=== PATIENT | female | born 1940 | race Caucasian/White ===

== ENCOUNTER 2018-03-08 16:00 | Outpatient (RCR) | payer MEDICARE, SELFPAY ==
[2018-03-01 16:58] VITALS: BP 152/84; PULSE 72; RESP 18; TEMP 37
--- NOTE | 2018-03-01 21:04 | PCM.WC.HP ---
(1) Stage IV pressure ulcer of sacral region Status: Chronic Current Visit: Yes Code(s): L89.154 - Pressure ulcer of sacral region, stage 4 (2) Controlled type 2 diabetes mellitus with insulin therapy Status: Chronic Current Visit: Yes Code(s): E11.9 - Type 2 diabetes mellitus without complications; Z79.4 - watermelon inspector (current) use of insulin (3) Vascular dementia with behavioral disturbance Status: Chronic Current Visit: Yes Code(s): F01.51 - Vascular dementia with behavioral disturbance (4) Osteoarthritis Status: Chronic Current Visit: Yes Qualifiers: Osteoarthritis location: multiple joints Code(s): M19.90 - Unspecified osteoarthritis, unspecified site (5) Morbid obesity Status: Chronic Current Visit: Yes Code(s): E66.01 - Morbid (severe) obesity due to excess calories (6) CAD (coronary artery disease) Status: Chronic Current Visit: Yes Qualifiers: Coronary Disease-Associated Artery/Lesion type: unspecified vessel or lesion type [place] vs. transplanted heart: [place] heart Associated angina: without angina Qualified Code(s): I25.10 - Atherosclerotic heart disease of [place] coronary artery without angina pectoris Code(s): I25.10 - Atherosclerotic heart disease of [place] coronary artery without angina pectoris (7) Hypothyroidism Status: Chronic Current Visit: Yes Qualifiers: Hypothyroidism type: unspecified Qualified Code(s): E03.9 - Hypothyroidism, unspecified Code(s): E03.9 - Hypothyroidism, unspecified History of Present Illness Date of Service: 03/01/18 Chief Complaint: nonhealing wound of sacral area History of Wound: Carly is a 77 yo resident of [facility] that presents with a pressure ulcer of her sacral/coccyx area that has been present for several months. She is a poor historian but is accompanied by her daughter who first noticed the wound. It has been being treated with Santyl and optifoam. Her daughter reports that the wound originally started out as a skin tear but progressed to a thick unstageable wound in the course of a week. The patient is mainly bed bound and has a low air loss mattress and a Roho cushion for her wheelchair. Her daughter, Nereyda, has been there and observed that her mother has not been repositioned for over 5 hours at times. She is a full code but would not want to be on life support per her daughter. The area is painful and there is a large amount of drainage. Carly has a urinary catheter but it leaks frequently. Past Medical History Past Medical History: Chronic Problems Stage IV pressure ulcer of sacral region (Chronic) Controlled type 2 diabetes mellitus with insulin therapy (Chronic) Vascular dementia with behavioral disturbance (Chronic) Osteoarthritis (Chronic) Morbid obesity (Chronic) CAD (coronary artery disease) (Chronic) Hypothyroidism (Chronic) Allergies/Adverse Reactions: Allergies No Known Allergies Allergy (Verified 03/01/18 16:27) Home Medications: Ambulatory Orders Medication Instructions Recorded Acetaminophen 650 mg RC Q4H PRN 03/01/18 Aspirin 81 mg PO DAILY 03/01/18 Bisacodyl [Dulcolax] 10 mg RECTAL DAILY PRN PRN 03/01/18 Cholecalciferol (VIT D3) [Vitamin 2,000 unit PO DAILY 03/01/18 D] Duloxetine Hcl [Cymbalta] 60 mg PO DAILY 03/01/18 Furosemide [Lasix] 20 mg PO BIDLX 03/01/18 Hydrocodone/Acetaminophen [[place] 1 each PO Q12H PRN 03/01/18 5-325 Tablet] Insulin Aspart [Novolog Flexpen 10 units SC BIDCM 03/01/18 ([facility])] Insulin Glargine,Hum.rec.anlog 20 unit SQ QHS 03/01/18 [Lantus Solostar] Isosorbide DN [Isordil] 10 mg PO TID 03/01/18 Levothyroxine Sodium 25 mcg PO DAILY 03/01/18 Lorazepam [Ativan] 0.5 mg PO DAILY PRN PRN 03/01/18 Mag Hydrox/Al Hydrox/Simeth 30 ml PO Q4H PRN PRN 03/01/18 [Mylanta II] Magnesium Hydroxide [Milk Of 30 ml PO PRN 03/01/18 Magnesia] Memantine HCl [Namenda Xr] 28 mg PO DAILY 03/01/18 Methenamine Hippurate [Hiprex] 1 gm PO DAILY 03/01/18 Metoprolol Tartrate [Lopressor 25 mg PO BID 03/01/18 (Beta Harvinder)] Omeprazole [Prilosec] 20 mg PO DAILY 03/01/18 Polyethylene Glycol 3350 [Miralax] 17 gm PO QHS 03/01/18 Potassium Chloride 10 meq PO DAILY 03/01/18 Sennosides [Senna] 8.6 mg PO BID 03/01/18 Tramadol HCl [Ultram] 100 mg PO Q8H PRN 03/01/18 Trazodone HCl 50 mg PO QHS 03/01/18 - Family History Maternal No pertinent history Paternal No pertinent history Lives: Assisted Smoking Status: Smoker, status unknown Tobacco Use: Non-smoker Alcohol: None Drugs: None Review of Systems Constitutional: Denies: Chills, Fever, Weight Change Eyes: Denies: Pain, Vision Change HEENT: Denies: Difficulty Hearing, Difficulty Swallowing, Sinus Congestion Cardiovascular: Denies: Chest Pain, Palpitations Respiratory: Denies: Cough, Shortness of Breath Gastrointestinal: Denies: Diarrhea, Nausea, Vomiting Genitourinary: Reports: Incontinence Musculoskeletal: Reports: Back Pain, Joint Pain Skin: Reports: Wounds Neurological: Reports: Confusion Hematologic/ Lymphatic: Denies: Easy Bruising, Easy Bleeding - Physical Exam Vital Signs Temp Pulse Resp BP 98.6 F 72 18 152/84 H 03/01/18 16:58 03/01/18 16:58 03/01/18 16:58 03/01/18 16:58 General: Alert, Cooperative, No apparent distress, Disoriented HEENT: Atraumatic, Normocephalic Oral: Moist Mucosa Neck: Supple Lungs: Clear to auscultation Cardiovascular: Regular rate, Regular Rhythm Abdomen: Non Tender, Non-Distended, Obese Extremities: Edema Skin: Ulcer/ Wound Wound Measurements and Assessment WC - Nurse 1 - General Ulcer Measurement Start: 03/01/18 16:25 Freq: Status: Active Protocol: Activity Type Activity Date Activity User E-Sign Co-Sign Detail Recorded Client Recorded Date Recorded By Document 03/01/18 16:58 DV [id number] 03/01/18 17:03 DV 03/01/18 16:58 Wound Center Nurse 1 [Ulcer Assessment] #1 Coccyx- left side -Combined with other wound No -Current Size (cm) - Length 3.5 -Current Size (cm) - Width 3.5 -Current Size (cm) - Depth 2.3 -Total Square Cm 12.25 -Date of Last Picture (Recall this 03/01/18 field) -Photo Taken Yes -Epithelialization None Present -Tunneling No -Undermining/Tunneling No -Circular Undermining No -Classification - Thickness Full Thickness with Exposed Support Structure -Classification - Pressure Ulcer Stage 4 -Exudate Amt Large (67-100%) -Exudate Type Serosanguineous -Wound Margin Distinct, Outline Attached -Granulation Amt None Present (0 %) -Granulation Quality N/A -Slough/Fibrin Yes -Necrosis Amt Large (67-100%) -Necrotic Tissue Type Adherent Slough -Structure Exposed Muscle Fat Layer Exposed None/Limited to Skin Breakdown -Texture (Francia-wound Skin Appearance) Assessed Rash -Moisture (Francia-wound Skin Appearance Assessed ) Weeping -Color (Francia-wound Skin Appearance) Assessed Erythema -Temperature (Francia-wound Skin No Abnormality Appearance) (Pt Warm) -Ulcer Cleansing Wound Cleanser -Foul Odor after Cleansing No -Anesthetic Used 4% Lidocaine Solution WC - Nurse 2 - General Ulcer CM Notes Start: 03/01/18 16:25 Freq: Status: Active Protocol: Activity Type Activity Date Activity User E-Sign Co-Sign Detail Recorded Client Recorded Date Recorded By Document 03/01/18 18:09 [email or web address] [id number] 03/01/18 18:11 ASMITA 03/01/18 18:09 Wound Center Nurse 2 [Procedure/Treatment] -Time 18:09 -Correct Patient Yes -Correct Side, Site, Position Yes -Correct Procedure Yes -Procedure Performed Yes -Type of Procedure Debridement -Clinical Debridement Bone -Post Debridement Size (cm) - Length 3.6 -Post Debridement Size (cm) - Width 3.6 -Post Debridement Size (cm) - Depth 2.4 -Total Square Cm 12.96 -Wound/Ulcer Outcome Not Healed -Ulcer Cleansing Rinsed/ Irrigated with Saline -Foul Odor after Cleansing No -Bioengineered Tissue No -Topical Lidocaine (%) 4 -Lidocaine (ml) 10 -Bleeding Controlled with NA -Treatment Response Procedure Tolerated Well [See Physician Procedure note for Specifics] Pain Scale: 0-10 Numeric [Pain] -Is Patient Pain Free? Yes Psych/Mental Status: Normal Affect, Appropriate Debridement Note Post-Debridement Measurements/Treatment WC - Nurse 2 - General Ulcer CM Notes Start: 03/01/18 16:25 Freq: Status: Active Protocol: Activity Type Activity Date Activity User E-Sign Co-Sign Detail Recorded Client Recorded Date Recorded By Document 03/01/18 18:09 [id number] 03/01/18 18:11 03/01/18 18:09 Wound Center Nurse 2 #1 Coccyx- left side -Time 18:09 -Correct Patient Yes -Correct Side, Site, Position Yes -Correct Procedure Yes -Procedure Performed Yes -Type of Procedure Debridement -Clinical Debridement Bone -Post Debridement Size (cm) - Length 3.6 -Post Debridement Size (cm) - Width 3.6 -Post Debridement Size (cm) - Depth 2.4 -Total Square Cm 12.96 -Wound/Ulcer Outcome Not Healed -Ulcer Cleansing Rinsed/ Irrigated with Saline -Foul Odor after Cleansing No -Bioengineered Tissue No -Topical Lidocaine (%) 4 -Lidocaine (ml) 10 -Bleeding Controlled with NA -Treatment Response Procedure Tolerated Well Pain Scale: 0-10 Numeric Is Patient Pain Free? Yes Wound debrided: coccyx left side Laterality: Left Wound Grade/Stage: stage IV Type of Debridement: Excisional debridement Anesthesia Used: 4% Lidocaine Solution Depth: Down to and including healthy tissue, in the subcutaneous layer Percentage of wound debrided: 100 Instrument Used: 5mm curette Tissue Removed: yellow slough, devitalized tissue Severity: Necrosis of Muscle Amount of bleeding with debridement: Mild Bleeding Controlled with: Compression and gauze Patient tolerated procedure well Assessment/Plan Active Problems Stage IV pressure ulcer of sacral region (Chronic) Controlled type 2 diabetes mellitus with insulin therapy (Chronic) Vascular dementia with behavioral disturbance (Chronic) Osteoarthritis (Chronic) Morbid obesity (Chronic) CAD (coronary artery disease) (Chronic) Hypothyroidism (Chronic) Assessment: stage IV pressure ulcer to sacral area. dementia. bedbound Plan: Carly's wound/ulcer was evaluated and debrided today. It is adjacent to the bone and there is concern for possible osteomyelitis. A CT scan was ordered to assess this. Wound culture was also done to assess for infection and will treat based on results. Will continue with Santyl to wound bed at this time and dress with gauze and Aquacel and ABD for drainage absorption. Orders placed to change positions frequently and at least every 2 hours to offload the area. SHe is already taking a protein supplement as she has poor PO intake due to not having any teeth. F/U in 1 week for re-evaluation.
--- NOTE | 2018-03-01 21:18 | HP.PCM_ITS ---
(1) Stage IV pressure ulcer of sacral region Status: Chronic Current Visit: Yes Code(s): L89.154 - Pressure ulcer of sacral region, stage 4 (2) Controlled type 2 diabetes mellitus with insulin therapy Status: Chronic Current Visit: Yes Code(s): E11.9 - Type 2 diabetes mellitus without complications; Z79.4 - intermediate frame tender (current) use of insulin (3) Vascular dementia with behavioral disturbance Status: Chronic Current Visit: Yes Code(s): F01.51 - Vascular dementia with behavioral disturbance (4) Osteoarthritis Status: Chronic Current Visit: Yes Qualifiers: Osteoarthritis location: multiple joints Code(s): M19.90 - Unspecified osteoarthritis, unspecified site (5) Morbid obesity Status: Chronic Current Visit: Yes Code(s): E66.01 - Morbid (severe) obesity due to excess calories (6) CAD (coronary artery disease) Status: Chronic Current Visit: Yes Qualifiers: Coronary Disease-Associated Artery/Lesion type: unspecified vessel or lesion type [place] vs. transplanted heart: [place] heart Associated angina: without angina Qualified Code(s): I25.10 - Atherosclerotic heart disease of [place] coronary artery without angina pectoris Code(s): I25.10 - Atherosclerotic heart disease of [place] coronary artery without angina pectoris (7) Hypothyroidism Status: Chronic Current Visit: Yes Qualifiers: Hypothyroidism type: unspecified Qualified Code(s): E03.9 - Hypothyroidism , unspecified Code(s): E03.9 - Hypothyroidism, unspecified History of Present Illness Date of Service: 03/01/18 Chief Complaint: nonhealing wound of sacral area History of Wound: Carly is a 77 yo resident of [facility] that presents with a pressure ulcer of her sacral/coccyx area that has been present for several months. She is a poor historian but is accompanied by her daughter who first noticed the wound. It has been being treated with Santyl and optifoam. Her daughter reports that the wound originally started out as a skin tear but progressed to a thick unstageable wound in the course of a week. The patient is mainly bed bound and has a low air loss mattress and a Roho cushion for her wheelchair. Her daughter, Nereyda, has been there and observed that her mother has not been repositioned for over 5 hours at times. She is a full code but would not want to be on life support per her daughter. The area is painful and there is a large amount of drainage. Carly has a urinary catheter but it leaks frequently. Past Medical History Past Medical History: Chronic Problems Stage IV pressure ulcer of sacral region (Chronic) Controlled type 2 diabetes mellitus with insulin therapy (Chronic) Vascular dementia with behavioral disturbance (Chronic) Osteoarthritis (Chronic) Morbid obesity (Chronic) CAD (coronary artery disease) (Chronic) Hypothyroidism (Chronic) Allergies/Adverse Reactions: Allergies No Known Allergies Allergy (Verified 03/01/18 16:27) Home Medications: Ambulatory Orders Medication Instructions Recorded Acetaminophen 650 mg RC Q4H PRN 03/01/18 Aspirin 81 mg PO DAILY 03/01/18 Bisacodyl [Dulcolax] 10 mg RECTAL DAILY PRN PRN 03/01/18 Cholecalciferol (VIT D3) [Vitamin 2,000 unit PO DAILY 03/01/18 D] Duloxetine Hcl [Cymbalta] 60 mg PO DAILY 03/01/18 Furosemide [Lasix] 20 mg PO BIDLX 03/01/18 Hydrocodone/Acetaminophen [[place] 1 each PO Q12H PRN 03/01/18 5-325 Tablet] Insulin Aspart [Novolog Flexpen 10 units SC BIDCM 03/01/18 ([facility])] Insulin Glargine,Hum.rec.anlog 20 unit SQ QHS 03/01/18 [Lantus Solostar] Isosorbide DN [Isordil] 10 mg PO TID 03/01/18 Levothyroxine Sodium 25 mcg PO DAILY 03/01/18 Lorazepam [Ativan] 0.5 mg PO DAILY PRN PRN 03/01/18 Mag Hydrox/Al Hydrox/Simeth 30 ml PO Q4H PRN PRN 03/01/18 [Mylanta II] Magnesium Hydroxide [Milk Of 30 ml PO PRN 03/01/18 Magnesia] Memantine HCl [Namenda Xr] 28 mg PO DAILY 03/01/18 Methenamine Hippurate [Hiprex] 1 gm PO DAILY 03/01/18 Metoprolol Tartrate [Lopressor 25 mg PO BID 03/01/18 (Beta Harvinder)] Omeprazole [Prilosec] 20 mg PO DAILY 03/01/18 Polyethylene Glycol 3350 [Miralax] 17 gm PO QHS 03/01/18 Potassium Chloride 10 meq PO DAILY 03/01/18 Sennosides [Senna] 8.6 mg PO BID 03/01/18 Tramadol HCl [Ultram] 100 mg PO Q8H PRN 03/01/18 Trazodone HCl 50 mg PO QHS 03/01/18 - Family History Maternal No pertinent history Paternal No pertinent history Lives: Prison Smoking Status: Smoker, status unknown Tobacco Use: Non-smoker Alcohol: None Drugs: None Review of Systems Constitutional: Denies: Chills, Fever, Weight Change Eyes: Denies: Pain, Vision Change HEENT: Denies: Difficulty Hearing, Difficulty Swallowing, Sinus Congestion Cardiovascular: Denies: Chest Pain, Palpitations Respiratory: Denies: Cough, Shortness of Breath Gastrointestinal: Denies: Diarrhea, Nausea, Vomiting Genitourinary: Reports: Incontinence Musculoskeletal: Reports: Back Pain, Joint Pain Skin: Reports: Wounds Neurological: Reports: Confusion Hematologic/ Lymphatic: Denies: Easy Bruising, Easy Bleeding - Physical Exam Vital Signs Temp Pulse Resp BP 98.6 F 72 18 152/84 H 03/01/18 16:58 03/01/18 16:58 03/01/18 16:58 03/01/18 16:58 General: Alert, Cooperative, No apparent distress, Disoriented HEENT: Atraumatic, Normocephalic Oral: Moist Mucosa Neck: Supple Lungs: Clear to auscultation Cardiovascular: Regular rate, Regular Rhythm Abdomen: Non Tender, Non-Distended, Obese Extremities: Edema Skin: Ulcer/ Wound Wound Measurements and Assessment WC - Nurse 1 - General Ulcer Measurement Start: 03/01/18 16:25 Freq: Status: Active Protocol: Activity Type Activity Date Activity User E-Sign Co-Sign Detail Recorded Client Recorded Date Recorded By Document 03/01/18 16:58 DV [id number] 03/01/18 17:03 DV 03/01/18 16:58 Wound Center Nurse 1 [Ulcer Assessment] #1 Coccyx- left side -Combined with other wound No -Current Size (cm) - Length 3.5 -Current Size (cm) - Width 3.5 -Current Size (cm) - Depth 2.3 -Total Square Cm 12.25 -Date of Last Picture (Recall this 03/01/18 field) -Photo Taken Yes -Epithelialization None Present -Tunneling No -Undermining/Tunneling No -Circular Undermining No -Classification - Thickness Full Thickness with Exposed Support Structure -Classification - Pressure Ulcer Stage 4 -Exudate Amt Large (67-100%) -Exudate Type Serosanguineous -Wound Margin Distinct, Outline Attached -Granulation Amt None Present (0 %) -Granulation Quality N/A -Slough/Fibrin Yes -Necrosis Amt Large (67-100%) -Necrotic Tissue Type Adherent Slough -Structure Exposed Muscle Fat Layer Exposed None/Limited to Skin Breakdown -Texture (Francia-wound Skin Appearance) Assessed Rash -Moisture (Francia-wound Skin Appearance Assessed ) Weeping -Color (Francia-wound Skin Appearance) Assessed Erythema -Temperature (Francia-wound Skin No Abnormality Appearance) (Pt Warm) -Ulcer Cleansing Wound Cleanser -Foul Odor after Cleansing No -Anesthetic Used 4% Lidocaine Solution WC - Nurse 2 - General Ulcer CM Notes Start: 03/01/18 16:25 Freq: Status: Active Protocol: Activity Type Activity Date Activity User E-Sign Co-Sign Detail Recorded Client Recorded Date Recorded By Document 03/01/18 18:09 [email or web address] [id number] 03/01/18 18:11 ASMITA 03/01/18 18:09 Wound Center Nurse 2 [Procedure/Treatment] -Time 18:09 -Correct Patient Yes -Correct Side, Site, Position Yes -Correct Procedure Yes -Procedure Performed Yes -Type of Procedure Debridement -Clinical Debridement Bone -Post Debridement Size (cm) - Length 3.6 -Post Debridement Size (cm) - Width 3.6 -Post Debridement Size (cm) - Depth 2.4 -Total Square Cm 12.96 -Wound/Ulcer Outcome Not Healed -Ulcer Cleansing Rinsed/ Irrigated with Saline -Foul Odor after Cleansing No -Bioengineered Tissue No -Topical Lidocaine (%) 4 -Lidocaine (ml) 10 -Bleeding Controlled with NA -Treatment Response Procedure Tolerated Well [See Physician Procedure note for Specifics] Pain Scale: 0-10 Numeric [Pain] -Is Patient Pain Free? Yes Psych/Mental Status: Normal Affect, Appropriate Debridement Note Post-Debridement Measurements/Treatment WC - Nurse 2 - General Ulcer CM Notes Start: 03/01/18 16:25 Freq: Status: Active Protocol: Activity Type Activity Date Activity User E-Sign Co-Sign Detail Recorded Client Recorded Date Recorded By Document 03/01/18 18:09 [id number] 03/01/18 18:11 03/01/18 18:09 Wound Center Nurse 2 #1 Coccyx- left side -Time 18:09 -Correct Patient Yes -Correct Side, Site, Position Yes -Correct Procedure Yes -Procedure Performed Yes -Type of Procedure Debridement -Clinical Debridement Bone -Post Debridement Size (cm) - Length 3.6 -Post Debridement Size (cm) - Width 3.6 -Post Debridement Size (cm) - Depth 2.4 -Total Square Cm 12.96 -Wound/Ulcer Outcome Not Healed -Ulcer Cleansing Rinsed/ Irrigated with Saline -Foul Odor after Cleansing No -Bioengineered Tissue No -Topical Lidocaine (%) 4 -Lidocaine (ml) 10 -Bleeding Controlled with NA -Treatment Response Procedure Tolerated Well Pain Scale: 0-10 Numeric Is Patient Pain Free? Yes Wound debrided: coccyx left side Laterality: Left Wound Grade/Stage: stage IV Type of Debridement: Excisional debridement Anesthesia Used: 4% Lidocaine Solution Depth: Down to and including healthy tissue, in the subcutaneous layer Percentage of wound debrided: 100 Instrument Used: 5mm curette Tissue Removed: yellow slough, devitalized tissue Severity: Necrosis of Muscle Amount of bleeding with debridement: Mild Bleeding Controlled with: Compression and gauze Patient tolerated procedure well Assessment/Plan Active Problems Stage IV pressure ulcer of sacral region (Chronic) Controlled type 2 diabetes mellitus with insulin therapy (Chronic) Vascular dementia with behavioral disturbance (Chronic) Osteoarthritis (Chronic) Morbid obesity (Chronic) CAD (coronary artery disease) (Chronic) Hypothyroidism (Chronic) Assessment: stage IV pressure ulcer to sacral area. dementia. bedbound Plan: Carly's wound/ulcer was evaluated and debrided today. It is adjacent to the bone and there is concern for possible osteomyelitis. A CT scan was ordered to assess this. Wound culture was also done to assess for infection and will treat based on results. Will continue with Santyl to wound bed at this time and dress with gauze and Aquacel and ABD for drainage absorption. Orders placed to change positions frequently and at least every 2 hours to offload the area. SHe is already taking a protein supplement as she has poor PO intake due to not having any teeth. F/U in 1 week for re-evaluation.
[2018-03-08 16:21] VITALS: BP 121/88; PULSE 74; RESP 18; TEMP 36.5
--- NOTE | 2018-03-08 20:05 | PCM.WC.PN ---
(1) Stage IV pressure ulcer of sacral region Status: Chronic Current Visit: Yes Code(s): L89.154 - Pressure ulcer of sacral region, stage 4 (2) Controlled type 2 diabetes mellitus with insulin therapy Status: Chronic Current Visit: Yes Code(s): E11.9 - Type 2 diabetes mellitus without complications; Z79.4 - termite inspector (current) use of insulin (3) Vascular dementia with behavioral disturbance Status: Chronic Current Visit: Yes Code(s): F01.51 - Vascular dementia with behavioral disturbance (4) Osteoarthritis Status: Chronic Current Visit: Yes Qualifiers: Osteoarthritis location: multiple joints Code(s): M19.90 - Unspecified osteoarthritis, unspecified site (5) Morbid obesity Status: Chronic Current Visit: Yes Code(s): E66.01 - Morbid (severe) obesity due to excess calories (6) CAD (coronary artery disease) Status: Chronic Current Visit: Yes Qualifiers: Coronary Disease-Associated Artery/Lesion type: unspecified vessel or lesion type [place] vs. transplanted heart: [place] heart Associated angina: without angina Qualified Code(s): I25.10 - Atherosclerotic heart disease of [place] coronary artery without angina pectoris Code(s): I25.10 - Atherosclerotic heart disease of [place] coronary artery without angina pectoris (7) Hypothyroidism Status: Chronic Current Visit: Yes Qualifiers: Hypothyroidism type: unspecified Qualified Code(s): E03.9 - Hypothyroidism, unspecified Code(s): E03.9 - Hypothyroidism, unspecified (8) Infection due to ESBL-producing Escherichia coli Status: Acute Current Visit: Yes Code(s): A49.8 - Other bacterial infections of unspecified site; Z16.12 - Extended spectrum beta lactamase (ESBL) resistance Type of Wound Date of Service: 03/08/18 Chief Complaint: nonhealing wound of sacral area History of Wound: Carly is a 77 yo resident of [facility] that presents with a pressure ulcer of her sacral/coccyx area that has been present for several months. She is a poor historian but is accompanied by her daughter who first noticed the wound. It has been being treated with Santyl and optifoam. Her daughter reports that the wound originally started out as a skin tear but progressed to a thick unstageable wound in the course of a week. The patient is mainly bed bound and has a low air loss mattress and a Roho cushion for her wheelchair. Her daughter, Nereyda, has been there and observed that her mother has not been repositioned for over 5 hours at times. She is a full code but would not want to be on life support per her daughter. The area is painful and there is a large amount of drainage. Carly has a urinary catheter but it leaks frequently. Progress of Wound: Carly's wound is relatively unchanged from last week. CT scan was negative for osteomyelitis. Her wound culture was positive for multiple aerobic and anaerobic bacteria including ESBL E. coli, Actinomyces, corynebacterium, staph simulans, bacteroides, Prevotella and clostridium. ID has been consulted for antibiotic recommendations. She will see them this week. She was started on metronidazole for treatment of her anaerobic cultures but would appreciate ID input as far astreatment of her aerobic culture results. Per Fior, the wound nurse at [facility], the wound is not draining very much and has improved from its previous appearance. - Physical Exam Vital Signs Temp Pulse Resp BP 97.7 F L 74 18 121/88 H 03/08/18 16:21 03/08/18 16:21 03/08/18 16:21 03/08/18 16:21 General: Alert, Cooperative, No apparent distress, Confused, Disoriented HEENT: Atraumatic, Normocephalic Oral: Moist Mucosa Abdomen: Obese Skin: Ulcer/ Wound Wound Measurements and Assessment WC - Nurse 1 - General Ulcer Measurement Start: 03/01/18 16:25 Freq: Status: Active Protocol: Activity Type Activity Date Activity User E-Sign Co-Sign Detail Recorded Client Recorded Date Recorded By Document 03/08/18 16:21 [id number] 03/08/18 16:40 03/08/18 16:21 Wound Center Nurse 1 [Ulcer Assessment] #1 STAGE IV SACRAL PRESSURE ULCER -Current Size (cm) - Length 3.9 -Current Size (cm) - Width 2.7 -Current Size (cm) - Depth 2.4 -Total Square Cm 10.53 -Date of Last Picture (Recall this 03/01/18 field) -Photo Taken No -Epithelialization None Present -Tunneling No -Undermining/Tunneling Yes -Undermining/Tunneling Starts (O' 3 clock) -Undermining/Tunneling Ends (O'clock) 7 -Maximum Distance (cm) 2.7 -Classification - Thickness Full Thickness with Exposed Support Structure -Classification - Pressure Ulcer Stage 4 -Change in Wound Grade/Stage No Query Text:If change please identify the Stage/Grade in the comment (ie. S2 G3) -Exudate Amt Medium (34-66%) -Exudate Type Serosanguineous -Wound Margin Distinct, Outline Attached -Granulation Amt None Present (0 %) -Granulation Quality N/A -Slough/Fibrin Yes -Necrosis Amt None Present (0 %) -Structure Exposed Muscle -Texture (Francia-wound Skin Appearance) No Abnormality -Moisture (Francia-wound Skin Appearance No Abnormality ) -Color (Francia-wound Skin Appearance) No Abnormality -Temperature (Francia-wound Skin No Abnormality Appearance) (Pt Warm) -Tenderness on Palpation (Francia-wound No Skin Appearance) -Ulcer Cleansing Rinsed/ Irrigated with Saline -Foul Odor after Cleansing No -Anesthetic Used 4% Lidocaine Solution WC - Nurse 2 - General Ulcer CM Notes Start: 03/01/18 16:25 Freq: Status: Active Protocol: Activity Type Activity Date Activity User E-Sign Co-Sign Detail Recorded Client Recorded Date Recorded By Document 03/08/18 17:40 [id number] 03/08/18 17:50 TM 03/08/18 17:40 Wound Center Nurse 2 [Procedure/Treatment] -Time 17:45 -Correct Patient Yes -Correct Side, Site, Position Yes -Correct Procedure Yes -Procedure Performed Yes -Type of Procedure Debridement -Clinical Debridement Subcutaneous -Post Debridement Size (cm) - Length 3.5 -Post Debridement Size (cm) - Width 2.5 -Post Debridement Size (cm) - Depth 3.2 -Total Square Cm 8.75 -Wound/Ulcer Outcome Not Healed -Ulcer Cleansing Rinsed/ Irrigated with Saline -Foul Odor after Cleansing No -Bioengineered Tissue No -Topical Lidocaine (%) 4 -Bleeding Controlled with Pressure -Treatment Response Procedure Tolerated Well [See Physician Procedure note for Specifics] Pain Scale: 0-10 Numeric [Pain] -Is Patient Pain Free? Yes Psych/Mental Status: Normal Affect, Appropriate Debridement Note Post-Debridement Measurements/Treatment WC - Nurse 2 - General Ulcer CM Notes Start: 03/01/18 16:25 Freq: Status: Active Protocol: Activity Type Activity Date Activity User E-Sign Co-Sign Detail Recorded Client Recorded Date Recorded By Document 03/01/18 18:09 [id number] 03/01/18 18:11 Document 03/08/18 17:40 [id number] 03/08/18 17:50 03/01/18 03/08/18 18:09 17:40 Wound Center Nurse 2 #1 STAGE IV SACRAL PRESSURE ULCER -Time 18:09 17:45 -Correct Patient Yes Yes -Correct Side, Site, Position Yes Yes -Correct Procedure Yes Yes -Procedure Performed Yes Yes -Type of Procedure Debridement Debridement -Clinical Debridement Bone Subcutaneous -Post Debridement Size (cm) - Length 3.6 3.5 -Post Debridement Size (cm) - Width 3.6 2.5 -Post Debridement Size (cm) - Depth 2.4 3.2 -Total Square Cm 12.96 8.75 -Wound/Ulcer Outcome Not Healed Not Healed -Ulcer Cleansing Rinsed/ Rinsed/ Irrigated with Irrigated with Saline Saline -Foul Odor after Cleansing No No -Bioengineered Tissue No No -Topical Lidocaine (%) 4 4 -Lidocaine (ml) 10 -Bleeding Controlled with NA Pressure -Treatment Response Procedure Procedure Tolerated Well Tolerated Well Pain Scale: 0-10 Numeric Is Patient Pain Free? Yes Yes Wound debrided: Stage III sacral pressure ulcer Laterality: Not Applicable Wound Grade/Stage: stage III Type of Debridement: Excisional debridement Anesthesia Used: 4% Lidocaine Solution Depth: Down to and including healthy tissue, in the subcutaneous layer Percentage of wound debrided: 100 Instrument Used: 5mm curette Tissue Removed: yellow slough, devitalized tissue Severity: Fat Layer Exposed Amount of bleeding with debridement: Mild Bleeding Controlled with: Compression and gauze Patient tolerated procedure well Assessment/Plan Active Problems Stage IV pressure ulcer of sacral region (Chronic) Controlled type 2 diabetes mellitus with insulin therapy (Chronic) Vascular dementia with behavioral disturbance (Chronic) Osteoarthritis (Chronic) Morbid obesity (Chronic) CAD (coronary artery disease) (Chronic) Hypothyroidism (Chronic) Infection due to ESBL-producing Escherichia coli (Acute) Assessment: stage IV pressure ulcer to sacral area. dementia. bedbound Plan: Carly's wound/ulcer was evaluated and debrided today. A CT scan was negative for osteomyelitis. Wound culture positive for multiple aerobic and anaerobic bacteria including ESBL E. coli, Actinomyces, corynebacterium, staph simulans, bacteroides, Prevotella and clostridium. ID has been consulted for antibiotic recommendations and she will see them next week. She was started on metronidazole for anaerobic culture results. Will change her dressing to Aquacel Extra to the wound bed at this time and dress with gauze and ABD for drainage absorption. Orders placed to change positions frequently and at least every 2 hours to offload the area. She is already taking a protein supplement as she has poor PO intake due to not having any teeth. F/U in 1 week for re-evaluation.
--- NOTE | 2018-03-08 20:15 | PN.PCM_ITS ---
(1) Stage IV pressure ulcer of sacral region Status: Chronic Current Visit: Yes Code(s): L89.154 - Pressure ulcer of sacral region, stage 4 (2) Controlled type 2 diabetes mellitus with insulin therapy Status: Chronic Current Visit: Yes Code(s): E11.9 - Type 2 diabetes mellitus without complications; Z79.4 - intermediate project manager (current) use of insulin (3) Vascular dementia with behavioral disturbance Status: Chronic Current Visit: Yes Code(s): F01.51 - Vascular dementia with behavioral disturbance (4) Osteoarthritis Status: Chronic Current Visit: Yes Qualifiers: Osteoarthritis location: multiple joints Code(s): M19.90 - Unspecified osteoarthritis, unspecified site (5) Morbid obesity Status: Chronic Current Visit: Yes Code(s): E66.01 - Morbid (severe) obesity due to excess calories (6) CAD (coronary artery disease) Status: Chronic Current Visit: Yes Qualifiers: Coronary Disease-Associated Artery/Lesion type: unspecified vessel or lesion type [place] vs. transplanted heart: [place] heart Associated angina: without angina Qualified Code(s): I25.10 - Atherosclerotic heart disease of [place] coronary artery without angina pectoris Code(s): I25.10 - Atherosclerotic heart disease of [place] coronary artery without angina pectoris (7) Hypothyroidism Status: Chronic Current Visit: Yes Qualifiers: Hypothyroidism type: unspecified Qualified Code(s): E03.9 - Hypothyroidism , unspecified Code(s): E03.9 - Hypothyroidism, unspecified (8) Infection due to ESBL-producing Escherichia coli Status: Acute Current Visit: Yes Code(s): A49.8 - Other bacterial infections of unspecified site; Z16.12 - Extended spectrum beta lactamase (ESBL ) resistance Type of Wound Date of Service: 03/08/18 Chief Complaint: nonhealing wound of sacral area History of Wound: Carly is a 77 yo resident of [facility] that presents with a pressure ulcer of her sacral/coccyx area that has been present for several months. She is a poor historian but is accompanied by her daughter who first noticed the wound. It has been being treated with Santyl and optifoam. Her daughter reports that the wound originally started out as a skin tear but progressed to a thick unstageable wound in the course of a week. The patient is mainly bed bound and has a low air loss mattress and a Roho cushion for her wheelchair. Her daughter, Nereyda, has been there and observed that her mother has not been repositioned for over 5 hours at times. She is a full code but would not want to be on life support per her daughter. The area is painful and there is a large amount of drainage. Carly has a urinary catheter but it leaks frequently. Progress of Wound: Carly's wound is relatively unchanged from last week. CT scan was negative for osteomyelitis. Her wound culture was positive for multiple aerobic and anaerobic bacteria including ESBL E. coli, Actinomyces, corynebacterium, staph simulans, bacteroides, Prevotella and clostridium. ID has been consulted for antibiotic recommendations. She will see them this week. She was started on metronidazole for treatment of her anaerobic cultures but would appreciate ID input as far astreatment of her aerobic culture results. Per Fior, the wound nurse at [facility], the wound is not draining very much and has improved from its previous appearance. - Physical Exam Vital Signs Temp Pulse Resp BP 97.7 F L 74 18 121/88 H 03/08/18 16:21 03/08/18 16:21 03/08/18 16:21 03/08/18 16:21 General: Alert, Cooperative, No apparent distress, Confused, Disoriented HEENT: Atraumatic, Normocephalic Oral: Moist Mucosa Abdomen: Obese Skin: Ulcer/ Wound Wound Measurements and Assessment WC - Nurse 1 - General Ulcer Measurement Start: 03/01/18 16:25 Freq: Status: Active Protocol: Activity Type Activity Date Activity User E-Sign Co-Sign Detail Recorded Client Recorded Date Recorded By Document 03/08/18 16:21 [id number] 03/08/18 16:40 03/08/18 16:21 Wound Center Nurse 1 [Ulcer Assessment] #1 STAGE IV SACRAL PRESSURE ULCER -Current Size (cm) - Length 3.9 -Current Size (cm) - Width 2.7 -Current Size (cm) - Depth 2.4 -Total Square Cm 10.53 -Date of Last Picture (Recall this 03/01/18 field) -Photo Taken No -Epithelialization None Present -Tunneling No -Undermining/Tunneling Yes -Undermining/Tunneling Starts (O' 3 clock) -Undermining/Tunneling Ends (O'clock) 7 -Maximum Distance (cm) 2.7 -Classification - Thickness Full Thickness with Exposed Support Structure -Classification - Pressure Ulcer Stage 4 -Change in Wound Grade/Stage No Query Text:If change please identify the Stage/Grade in the comment (ie. S2 G3) -Exudate Amt Medium (34-66%) -Exudate Type Serosanguineous -Wound Margin Distinct, Outline Attached -Granulation Amt None Present (0 %) -Granulation Quality N/A -Slough/Fibrin Yes -Necrosis Amt None Present (0 %) -Structure Exposed Muscle -Texture (Francia-wound Skin Appearance) No Abnormality -Moisture (Francia-wound Skin Appearance No Abnormality ) -Color (Francia-wound Skin Appearance) No Abnormality -Temperature (Francia-wound Skin No Abnormality Appearance) (Pt Warm) -Tenderness on Palpation (Francia-wound No Skin Appearance) -Ulcer Cleansing Rinsed/ Irrigated with Saline -Foul Odor after Cleansing No -Anesthetic Used 4% Lidocaine Solution WC - Nurse 2 - General Ulcer CM Notes Start: 03/01/18 16:25 Freq: Status: Active Protocol: Activity Type Activity Date Activity User E-Sign Co-Sign Detail Recorded Client Recorded Date Recorded By Document 03/08/18 17:40 [id number] 03/08/18 17:50 TM 03/08/18 17:40 Wound Center Nurse 2 [Procedure/Treatment] -Time 17:45 -Correct Patient Yes -Correct Side, Site, Position Yes -Correct Procedure Yes -Procedure Performed Yes -Type of Procedure Debridement -Clinical Debridement Subcutaneous -Post Debridement Size (cm) - Length 3.5 -Post Debridement Size (cm) - Width 2.5 -Post Debridement Size (cm) - Depth 3.2 -Total Square Cm 8.75 -Wound/Ulcer Outcome Not Healed -Ulcer Cleansing Rinsed/ Irrigated with Saline -Foul Odor after Cleansing No -Bioengineered Tissue No -Topical Lidocaine (%) 4 -Bleeding Controlled with Pressure -Treatment Response Procedure Tolerated Well [See Physician Procedure note for Specifics] Pain Scale: 0-10 Numeric [Pain] -Is Patient Pain Free? Yes Psych/Mental Status: Normal Affect, Appropriate Debridement Note Post-Debridement Measurements/Treatment WC - Nurse 2 - General Ulcer CM Notes Start: 03/01/18 16:25 Freq: Status: Active Protocol: Activity Type Activity Date Activity User E-Sign Co-Sign Detail Recorded Client Recorded Date Recorded By Document 03/01/18 18:09 [id number] 03/01/18 18:11 Document 03/08/18 17:40 [id number] 03/08/18 17:50 03/01/18 03/08/18 18:09 17:40 Wound Center Nurse 2 #1 STAGE IV SACRAL PRESSURE ULCER -Time 18:09 17:45 -Correct Patient Yes Yes -Correct Side, Site, Position Yes Yes -Correct Procedure Yes Yes -Procedure Performed Yes Yes -Type of Procedure Debridement Debridement -Clinical Debridement Bone Subcutaneous -Post Debridement Size (cm) - Length 3.6 3.5 -Post Debridement Size (cm) - Width 3.6 2.5 -Post Debridement Size (cm) - Depth 2.4 3.2 -Total Square Cm 12.96 8.75 -Wound/Ulcer Outcome Not Healed Not Healed -Ulcer Cleansing Rinsed/ Rinsed/ Irrigated with Irrigated with Saline Saline -Foul Odor after Cleansing No No -Bioengineered Tissue No No -Topical Lidocaine (%) 4 4 -Lidocaine (ml) 10 -Bleeding Controlled with NA Pressure -Treatment Response Procedure Procedure Tolerated Well Tolerated Well Pain Scale: 0-10 Numeric Is Patient Pain Free? Yes Yes Wound debrided: Stage III sacral pressure ulcer Laterality: Not Applicable Wound Grade/Stage: stage III Type of Debridement: Excisional debridement Anesthesia Used: 4% Lidocaine Solution Depth: Down to and including healthy tissue, in the subcutaneous layer Percentage of wound debrided: 100 Instrument Used: 5mm curette Tissue Removed: yellow slough, devitalized tissue Severity: Fat Layer Exposed Amount of bleeding with debridement: Mild Bleeding Controlled with: Compression and gauze Patient tolerated procedure well Assessment/Plan Active Problems Stage IV pressure ulcer of sacral region (Chronic) Controlled type 2 diabetes mellitus with insulin therapy (Chronic) Vascular dementia with behavioral disturbance (Chronic) Osteoarthritis (Chronic) Morbid obesity (Chronic) CAD (coronary artery disease) (Chronic) Hypothyroidism (Chronic) Infection due to ESBL-producing Escherichia coli (Acute) Assessment: stage IV pressure ulcer to sacral area. dementia. bedbound Plan: Carly's wound/ulcer was evaluated and debrided today. A CT scan was negative for osteomyelitis. Wound culture positive for multiple aerobic and anaerobic bacteria including ESBL E. coli, Actinomyces, corynebacterium, staph simulans, bacteroides, Prevotella and clostridium. ID has been consulted for antibiotic recommendations and she will see them next week. She was started on metronidazole for anaerobic culture results. Will change her dressing to Aquacel Extra to the wound bed at this time and dress with gauze and ABD for drainage absorption. Orders placed to change positions frequently and at least every 2 hours to offload the area. She is already taking a protein supplement as she has poor PO intake due to not having any teeth. F/U in 1 week for re- evaluation.
--- NOTE | 2018-03-11 11:30 | PCM.HP.ID ---
Problem List (1) Stage IV pressure ulcer of sacral region Status: Chronic Reason for Consult: (+) wound cx Consulted by: Dr. Sanches History of Present Illness: The patient is a 77 year old F with vascular dementia who was referred to wound care center for nonhealing sacral ulcer. Had been present at [facility] for at least several weeks. Has chronic catheter which does leak some. Was heavy heavy, dark drainage from wound. No fever, no pain. Referred here, saw Dr. Sanches. Wound cx sent and CT done. Return visit 03/08 showed wound much improved with drainage resolved. Cx with polymicrobial growth, and po flagyl started. Referred to ID due to growth of esbl ecoli. Family at bedside. Full ROS performed and neg except as noted above. 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) Controlled type 2 diabetes mellitus with insulin therapy (Chronic) Vascular dementia with behavioral disturbance (Chronic) Osteoarthritis (Chronic) Morbid obesity (Chronic) CAD (coronary artery disease) (Chronic) Hypothyroidism (Chronic) Allergies/Adverse Reactions: Allergies No Known Allergies Allergy (Verified 03/01/18 16:27) Home Medications: Ambulatory Orders Medication Instructions Recorded Acetaminophen 650 mg RC Q4H PRN 03/01/18 Aspirin 81 mg PO DAILY 03/01/18 Bisacodyl [Dulcolax] 10 mg RECTAL DAILY PRN PRN 03/01/18 Cholecalciferol (VIT D3) [Vitamin 2,000 unit PO DAILY 03/01/18 D] Duloxetine Hcl [Cymbalta] 60 mg PO DAILY 03/01/18 Furosemide [Lasix] 20 mg PO BIDLX 03/01/18 Hydrocodone/Acetaminophen [[place] 1 each PO Q12H PRN 03/01/18 5-325 Tablet] Insulin Aspart [Novolog Flexpen 10 units SC BIDCM 03/01/18 ([facility])] Insulin Glargine,Hum.rec.anlog 20 unit SQ QHS 03/01/18 [Lantus Solostar] Isosorbide DN [Isordil] 10 mg PO TID 03/01/18 Levothyroxine Sodium 25 mcg PO DAILY 03/01/18 Lorazepam [Ativan] 0.5 mg PO DAILY PRN PRN 03/01/18 Mag Hydrox/Al Hydrox/Simeth 30 ml PO Q4H PRN PRN 03/01/18 [Mylanta II] Magnesium Hydroxide [Milk Of 30 ml PO PRN 03/01/18 Magnesia] Memantine HCl [Namenda Xr] 28 mg PO DAILY 03/01/18 Methenamine Hippurate [Hiprex] 1 gm PO DAILY 03/01/18 Metoprolol Tartrate [Lopressor 25 mg PO BID 03/01/18 (Beta Harvinder)] Omeprazole [Prilosec] 20 mg PO DAILY 03/01/18 Polyethylene Glycol 3350 [Miralax] 17 gm PO QHS 03/01/18 Potassium Chloride 10 meq PO DAILY 03/01/18 Sennosides [Senna] 8.6 mg PO BID 03/01/18 Tramadol HCl [Ultram] 100 mg PO Q8H PRN 03/01/18 Trazodone HCl 50 mg PO QHS 03/01/18 - Social History Tobacco Use: non-smoker Vital Signs Temp Pulse Resp BP 97.7 F L 74 18 121/88 H 03/08/18 16:21 03/08/18 16:21 03/08/18 16:21 03/08/18 16:21 Oxygen Delivery Method Room Air - Other Studies Radiology: [] reviewed Other Studies: [] Route of nutrition/ use of supplements: [] Nutritional Intake: [] IV Site: [] Kim Catheter: [] - Physical Exam General: No apparent distress, - - refuses to answer most questions or be examined HEENT: Atraumatic, PERRLA, EOMI Neck: Supple, No Nodes Lungs: Clear to auscultation, Normal air movement Cardiovascular: Regular rate, Regular Rhythm, No murmurs Abdomen: Soft, Non Tender, Non-Distended Skin: Ulcer/ Wound - reviewed photo - Assessment/Plan Antibiotics: [] Assessment/Plan: [] Stage 4 sacral ulcer - CT with no sign of abscess or osteo. Wound does not probe to bone per report. Reviewed photos, and wound much improved with debridement and topical care. Wound cx with polymicrobial growth (8 different organisms) but gram stain neg for inflammation or bacteria. This is consistent with superficial colonization, recommend stopping flagyl, continuing with topical wound care. Pt dues not appear to be actively infected. Family agrees with this plan of care. Will follow as needed, d/w nursing, please call with any ?s. Thank you.
--- NOTE | 2018-03-11 11:36 | CON.PCM_ITS ---
Problem List (1) Stage IV pressure ulcer of sacral region Status: Chronic Reason for Consult: (+) wound cx Consulted by: Dr. Sanches History of Present Illness: The patient is a 77 year old F with vascular dementia who was referred to wound care center for nonhealing sacral ulcer. Had been present at [facility] for at least several weeks. Has chronic catheter which does leak some. Was heavy heavy, dark drainage from wound. No fever, no pain. Referred here, saw Dr. Sanches. Wound cx sent and CT done. Return visit 03/08 showed wound much improved with drainage resolved. Cx with polymicrobial growth, and po flagyl started. Referred to ID due to growth of esbl ecoli. Family at bedside. Full ROS performed and neg except as noted above. 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) Controlled type 2 diabetes mellitus with insulin therapy (Chronic) Vascular dementia with behavioral disturbance (Chronic) Osteoarthritis (Chronic) Morbid obesity (Chronic) CAD (coronary artery disease) (Chronic) Hypothyroidism (Chronic) Allergies/Adverse Reactions: Allergies No Known Allergies Allergy (Verified 03/01/18 16:27) Home Medications: Ambulatory Orders Medication Instructions Recorded Acetaminophen 650 mg RC Q4H PRN 03/01/18 Aspirin 81 mg PO DAILY 03/01/18 Bisacodyl [Dulcolax] 10 mg RECTAL DAILY PRN PRN 03/01/18 Cholecalciferol (VIT D3) [Vitamin 2,000 unit PO DAILY 03/01/18 D] Duloxetine Hcl [Cymbalta] 60 mg PO DAILY 03/01/18 Furosemide [Lasix] 20 mg PO BIDLX 03/01/18 Hydrocodone/Acetaminophen [[place] 1 each PO Q12H PRN 03/01/18 5-325 Tablet] Insulin Aspart [Novolog Flexpen 10 units SC BIDCM 03/01/18 ([facility])] Insulin Glargine,Hum.rec.anlog 20 unit SQ QHS 03/01/18 [Lantus Solostar] Isosorbide DN [Isordil] 10 mg PO TID 03/01/18 Levothyroxine Sodium 25 mcg PO DAILY 03/01/18 Lorazepam [Ativan] 0.5 mg PO DAILY PRN PRN 03/01/18 Mag Hydrox/Al Hydrox/Simeth 30 ml PO Q4H PRN PRN 03/01/18 [Mylanta II] Magnesium Hydroxide [Milk Of 30 ml PO PRN 03/01/18 Magnesia] Memantine HCl [Namenda Xr] 28 mg PO DAILY 03/01/18 Methenamine Hippurate [Hiprex] 1 gm PO DAILY 03/01/18 Metoprolol Tartrate [Lopressor 25 mg PO BID 03/01/18 ([facility] Harvinder)] Omeprazole [Prilosec] 20 mg PO DAILY 03/01/18 Polyethylene Glycol 3350 [Miralax] 17 gm PO QHS 03/01/18 Potassium Chloride 10 meq PO DAILY 03/01/18 Sennosides [Senna] 8.6 mg PO BID 03/01/18 Tramadol HCl [Ultram] 100 mg PO Q8H PRN 03/01/18 Trazodone HCl 50 mg PO QHS 03/01/18 - Social History Tobacco Use: non-smoker Vital Signs Temp Pulse Resp BP 97.7 F L 74 18 121/88 H 03/08/18 16:21 03/08/18 16:21 03/08/18 16:21 03/08/18 16:21 Oxygen Delivery Method Room Air - Other Studies Radiology: [] reviewed Other Studies: [] Route of nutrition/ use of supplements: [] Nutritional Intake: [] IV Site: [] Kim Catheter: [] - Physical Exam General: No apparent distress, - - refuses to answer most questions or be examined HEENT: Atraumatic, PERRLA, EOMI Neck: Supple, No Nodes Lungs: Clear to auscultation, Normal air movement Cardiovascular: Regular rate, Regular Rhythm, No murmurs Abdomen: Soft, Non Tender, Non-Distended Skin: Ulcer/ Wound - reviewed photo - Assessment/Plan Antibiotics: [] Assessment/Plan: [] Stage 4 sacral ulcer - CT with no sign of abscess or osteo. Wound does not probe to bone per report. Reviewed photos, and wound much improved with debridement and topical care. Wound cx with polymicrobial growth (8 different organisms) but gram stain neg for inflammation or bacteria. This is consistent with superficial colonization, recommend stopping flagyl, continuing with topical wound care. Pt dues not appear to be actively infected. Family agrees with this plan of care. Will follow as needed, d/w nursing, please call with any ?s. Thank you.
== END 2018-03-09 23:59 ==
LOC: WC 16:00
PROVIDERS: Family Provider Internal Medicine; PCP Internal Medicine; Visit Provider Family Medicine
DX: E11.622 Type 2 diabetes mellitus with other skin ulcer (principal); L89.154 Pressure ulcer of sacral region, stage 4; F01.51 Vascular dementia, unspecified severity, with behavioral disturbance; M19.90 Unspecified osteoarthritis, unspecified site; E66.01 Morbid (severe) obesity due to excess calories; Z71.3 Dietary counseling and surveillance; I25.10 Atherosclerotic heart disease of native coronary artery without angina pectoris
CPT/HCPCS: 11042; 11043; 87070; 87075; 87076; 87077; 87186; 87205; 99204; G0463

== ENCOUNTER 2018-04-05 12:30 | Outpatient (RCR) | payer MEDICARE, MEDICAID, SELFPAY ==
[2018-03-10 01:13] VITALS: BP 121/88; PULSE 74; RESP 18; TEMP 36.5
[2018-03-22 15:59] VITALS: BP 99/55; PULSE 73; RESP 18; TEMP 36.3
--- NOTE | 2018-03-22 18:49 | PCM.WC.PN ---
(1) Stage IV pressure ulcer of sacral region Status: Chronic Current Visit: Yes Code(s): L89.154 - Pressure ulcer of sacral region, stage 4 (2) Controlled type 2 diabetes mellitus with insulin therapy Status: Chronic Current Visit: Yes Code(s): E11.9 - Type 2 diabetes mellitus without complications; Z79.4 - long term acute care registered nurse (current) use of insulin (3) Vascular dementia with behavioral disturbance Status: Chronic Current Visit: Yes Code(s): F01.51 - Vascular dementia with behavioral disturbance (4) Morbid obesity Status: Chronic Current Visit: Yes Code(s): E66.01 - Morbid (severe) obesity due to excess calories Type of Wound Date of Service: 03/22/18 Chief Complaint: nonhealing wound of sacral area History of Wound: Carly is a 77 yo resident of [facility] that presents with a pressure ulcer of her sacral/coccyx area that has been present for several months. She is a poor historian but is accompanied by her daughter who first noticed the wound. It has been being treated with Santyl and optifoam. Her daughter reports that the wound originally started out as a skin tear but progressed to a thick unstageable wound in the course of a week. The patient is mainly bed bound and has a low air loss mattress and a Roho cushion for her wheelchair. Her daughter, Nereyda, has been there and observed that her mother has not been repositioned for over 5 hours at times. She is a full code but would not want to be on life support per her daughter. The area is painful and there is a large amount of drainage. Carly has a urinary catheter but it leaks frequently. Progress of Wound: Carly's wound is improved from last visit. CT scan was negative for osteomyelitis. Her wound culture was positive for multiple aerobic and anaerobic bacteria including ESBL E. coli, Actinomyces, corynebacterium, staph simulans, bacteroides, Prevotella and clostridium. ID has been consulted for antibiotic recommendations but felt that wound was improving and did not need further treatment with antibiotics. She completed Flagyl. - Physical Exam Vital Signs Temp Pulse Resp BP 97.3 F L 73 18 99/55 L 03/22/18 15:59 03/22/18 15:59 03/22/18 15:59 03/22/18 15:59 General: Alert, Oriented x3, Cooperative, No apparent distress HEENT: Atraumatic, Normocephalic Oral: Moist Mucosa Abdomen: Non Tender, Obese Extremities: Edema Skin: Ulcer/ Wound Wound Measurements and Assessment - Nurse 1 - General Ulcer Measurement Start: 03/22/18 10:42 Freq: Status: Active Protocol: Activity Type Activity Date Activity User E-Sign Co-Sign Detail Recorded Client Recorded Date Recorded By Document 03/22/18 15:59 [id number] 03/22/18 16:06 03/22/18 15:59 Wound Center Nurse 1 [Ulcer Assessment] #1 STAGE IV SACRAL PRESSURE ULCER -Current Size (cm) - Length 2.0 -Current Size (cm) - Width 2.0 -Current Size (cm) - Depth 1.5 -Total Square Cm 4.00 -Photo Taken No -Epithelialization None Present -Tunneling No -Undermining/Tunneling No -Circular Undermining No -Exudate Amt Medium (34-66%) -Exudate Type Serosanguineous -Wound Margin Thickened -Granulation Amt Small (1-33%) -Granulation Quality [place] Red -Slough/Fibrin Yes -Necrosis Amt None Present (0 %) -Texture (Francia-wound Skin Appearance) Assessed -Moisture (Francia-wound Skin Appearance Assessed ) Maceration -Color (Francia-wound Skin Appearance) No Abnormality Assessed -Temperature (Francia-wound Skin No Abnormality Appearance) (Pt Warm) -Tenderness on Palpation (Francia-wound No Skin Appearance) -Ulcer Cleansing Rinsed/ Irrigated with Saline -Foul Odor after Cleansing No -Anesthetic Used 5% Lidocaine Gel [Edema Assessment] -Lower Limb Edema Present NA - Nurse 2 - General Ulcer CM Notes Start: 03/22/18 10:42 Freq: Status: Active Protocol: Activity Type Activity Date Activity User E-Sign Co-Sign Detail Recorded Client Recorded Date Recorded By Document 03/22/18 16:58 [id number] 03/22/18 17:00 03/22/18 16:58 Wound Center Nurse 2 [Procedure/Treatment] #1 STAGE IV SACRAL PRESSURE ULCER -Time 16:58 -Correct Patient Yes -Correct Side, Site, Position Yes -Correct Procedure Yes -Procedure Performed Yes -Type of Procedure Debridement -Clinical Debridement Subcutaneous -Post Debridement Size (cm) - Length 2.2 -Post Debridement Size (cm) - Width 1.8 -Post Debridement Size (cm) - Depth 1.5 -Total Square Cm 3.96 -Wound/Ulcer Outcome Not Healed -Ulcer Cleansing Rinsed/ Irrigated with Saline -Foul Odor after Cleansing No -Bioengineered Tissue No -Topical Lidocaine (%) 5 -Bleeding Controlled with Pressure -Treatment Response Procedure Tolerated Well [See Physician Procedure note for Specifics] Pain Scale: 0-10 Numeric [Pain] -Is Patient Pain Free? Yes Psych/Mental Status: Normal Affect, Appropriate Debridement Note Post-Debridement Measurements/Treatment WC - Nurse 2 - General Ulcer CM Notes Start: 03/22/18 10:42 Freq: Status: Active Protocol: Activity Type Activity Date Activity User E-Sign Co-Sign Detail Recorded Client Recorded Date Recorded By Document 03/22/18 16:58 [id number] 03/22/18 17:00 03/22/18 16:58 Wound Center Nurse 2 #1 STAGE IV SACRAL PRESSURE ULCER -Time 16:58 -Correct Patient Yes -Correct Side, Site, Position Yes -Correct Procedure Yes -Procedure Performed Yes -Type of Procedure Debridement -Clinical Debridement Subcutaneous -Post Debridement Size (cm) - Length 2.2 -Post Debridement Size (cm) - Width 1.8 -Post Debridement Size (cm) - Depth 1.5 -Total Square Cm 3.96 -Wound/Ulcer Outcome Not Healed -Ulcer Cleansing Rinsed/ Irrigated with Saline -Foul Odor after Cleansing No -Bioengineered Tissue No -Topical Lidocaine (%) 5 -Bleeding Controlled with Pressure -Treatment Response Procedure Tolerated Well Pain Scale: 0-10 Numeric Is Patient Pain Free? Yes Wound debrided: Stage IV sacral pressure ulcer Laterality: Not Applicable Wound Grade/Stage: stage IV Type of Debridement: Excisional debridement Anesthesia Used: 4% Lidocaine Solution Depth: Down to and including healthy tissue, in the subcutaneous layer Percentage of wound debrided: 100 Instrument Used: 5mm curette Tissue Removed: yellow slough, devitalized tissue Severity: Fat Layer Exposed Amount of bleeding with debridement: Mild Bleeding Controlled with: Compression and gauze Patient tolerated procedure well Assessment/Plan Active Problems Stage IV pressure ulcer of sacral region (Chronic) Controlled type 2 diabetes mellitus with insulin therapy (Chronic) Vascular dementia with behavioral disturbance (Chronic) Morbid obesity (Chronic) Assessment: stage IV pressure ulcer to sacral area. dementia. bedbound Plan: Carly's wound/ulcer was evaluated and debrided today. A CT scan was negative for osteomyelitis. Will continue her dressing to Aquacel Extra to the wound bed at this time and dress with gauze and ABD for drainage absorption. Orders placed to change positions frequently and at least every 2 hours to offload the area. She is already taking a protein supplement as she has poor PO intake due to not having any teeth. F/U in 2 weeks for re-evaluation.
--- NOTE | 2018-03-22 18:55 | PN.PCM_ITS ---
(1) Stage IV pressure ulcer of sacral region Status: Chronic Current Visit: Yes Code(s): L89.154 - Pressure ulcer of sacral region, stage 4 (2) Controlled type 2 diabetes mellitus with insulin therapy Status: Chronic Current Visit: Yes Code(s): E11.9 - Type 2 diabetes mellitus without complications; Z79.4 - intermediate card tender (current) use of insulin (3) Vascular dementia with behavioral disturbance Status: Chronic Current Visit: Yes Code(s): F01.51 - Vascular dementia with behavioral disturbance (4) Morbid obesity Status: Chronic Current Visit: Yes Code(s): E66.01 - Morbid (severe) obesity due to excess calories Type of Wound Date of Service: 03/22/18 Chief Complaint: nonhealing wound of sacral area History of Wound: Carly is a 77 yo resident of [facility] that presents with a pressure ulcer of her sacral/coccyx area that has been present for several months. She is a poor historian but is accompanied by her daughter who first noticed the wound. It has been being treated with Santyl and optifoam. Her daughter reports that the wound originally started out as a skin tear but progressed to a thick unstageable wound in the course of a week. The patient is mainly bed bound and has a low air loss mattress and a Roho cushion for her wheelchair. Her daughter, Nereyda, has been there and observed that her mother has not been repositioned for over 5 hours at times. She is a full code but would not want to be on life support per her daughter. The area is painful and there is a large amount of drainage. Carly has a urinary catheter but it leaks frequently. Progress of Wound: Carly's wound is improved from last visit. CT scan was negative for osteomyelitis. Her wound culture was positive for multiple aerobic and anaerobic bacteria including ESBL E. coli, Actinomyces, corynebacterium, staph simulans, bacteroides, Prevotella and clostridium. ID has been consulted for antibiotic recommendations but felt that wound was improving and did not need further treatment with antibiotics. She completed Flagyl. - Physical Exam Vital Signs Temp Pulse Resp BP 97.3 F L 73 18 99/55 L 03/22/18 15:59 03/22/18 15:59 03/22/18 15:59 03/22/18 15:59 General: Alert, Oriented x3, Cooperative, No apparent distress HEENT: Atraumatic, Normocephalic Oral: Moist Mucosa Abdomen: Non Tender, Obese Extremities: Edema Skin: Ulcer/ Wound Wound Measurements and Assessment - Nurse 1 - General Ulcer Measurement Start: 03/22/18 10:42 Freq: Status: Active Protocol: Activity Type Activity Date Activity User E-Sign Co-Sign Detail Recorded Client Recorded Date Recorded By Document 03/22/18 15:59 [id number] 03/22/18 16:06 03/22/18 15:59 Wound Center Nurse 1 [Ulcer Assessment] #1 STAGE IV SACRAL PRESSURE ULCER -Current Size (cm) - Length 2.0 -Current Size (cm) - Width 2.0 -Current Size (cm) - Depth 1.5 -Total Square Cm 4.00 -Photo Taken No -Epithelialization None Present -Tunneling No -Undermining/Tunneling No -Circular Undermining No -Exudate Amt Medium (34-66%) -Exudate Type Serosanguineous -Wound Margin Thickened -Granulation Amt Small (1-33%) -Granulation Quality [place] Red -Slough/Fibrin Yes -Necrosis Amt None Present (0 %) -Texture (Francia-wound Skin Appearance) Assessed -Moisture (Francia-wound Skin Appearance Assessed ) Maceration -Color (Francia-wound Skin Appearance) No Abnormality Assessed -Temperature (Francia-wound Skin No Abnormality Appearance) (Pt Warm) -Tenderness on Palpation (Francia-wound No Skin Appearance) -Ulcer Cleansing Rinsed/ Irrigated with Saline -Foul Odor after Cleansing No -Anesthetic Used 5% Lidocaine Gel [Edema Assessment] -Lower Limb Edema Present NA - Nurse 2 - General Ulcer CM Notes Start: 03/22/18 10:42 Freq: Status: Active Protocol: Activity Type Activity Date Activity User E-Sign Co-Sign Detail Recorded Client Recorded Date Recorded By Document 03/22/18 16:58 [id number] 03/22/18 17:00 03/22/18 16:58 Wound Center Nurse 2 [Procedure/Treatment] #1 STAGE IV SACRAL PRESSURE ULCER -Time 16:58 -Correct Patient Yes -Correct Side, Site, Position Yes -Correct Procedure Yes -Procedure Performed Yes -Type of Procedure Debridement -Clinical Debridement Subcutaneous -Post Debridement Size (cm) - Length 2.2 -Post Debridement Size (cm) - Width 1.8 -Post Debridement Size (cm) - Depth 1.5 -Total Square Cm 3.96 -Wound/Ulcer Outcome Not Healed -Ulcer Cleansing Rinsed/ Irrigated with Saline -Foul Odor after Cleansing No -Bioengineered Tissue No -Topical Lidocaine (%) 5 -Bleeding Controlled with Pressure -Treatment Response Procedure Tolerated Well [See Physician Procedure note for Specifics] Pain Scale: 0-10 Numeric [Pain] -Is Patient Pain Free? Yes Psych/Mental Status: Normal Affect, Appropriate Debridement Note Post-Debridement Measurements/Treatment WC - Nurse 2 - General Ulcer CM Notes Start: 03/22/18 10:42 Freq: Status: Active Protocol: Activity Type Activity Date Activity User E-Sign Co-Sign Detail Recorded Client Recorded Date Recorded By Document 03/22/18 16:58 [id number] 03/22/18 17:00 03/22/18 16:58 Wound Center Nurse 2 #1 STAGE IV SACRAL PRESSURE ULCER -Time 16:58 -Correct Patient Yes -Correct Side, Site, Position Yes -Correct Procedure Yes -Procedure Performed Yes -Type of Procedure Debridement -Clinical Debridement Subcutaneous -Post Debridement Size (cm) - Length 2.2 -Post Debridement Size (cm) - Width 1.8 -Post Debridement Size (cm) - Depth 1.5 -Total Square Cm 3.96 -Wound/Ulcer Outcome Not Healed -Ulcer Cleansing Rinsed/ Irrigated with Saline -Foul Odor after Cleansing No -Bioengineered Tissue No -Topical Lidocaine (%) 5 -Bleeding Controlled with Pressure -Treatment Response Procedure Tolerated Well Pain Scale: 0-10 Numeric Is Patient Pain Free? Yes Wound debrided: Stage IV sacral pressure ulcer Laterality: Not Applicable Wound Grade/Stage: stage IV Type of Debridement: Excisional debridement Anesthesia Used: 4% Lidocaine Solution Depth: Down to and including healthy tissue, in the subcutaneous layer Percentage of wound debrided: 100 Instrument Used: 5mm curette Tissue Removed: yellow slough, devitalized tissue Severity: Fat Layer Exposed Amount of bleeding with debridement: Mild Bleeding Controlled with: Compression and gauze Patient tolerated procedure well Assessment/Plan Active Problems Stage IV pressure ulcer of sacral region (Chronic) Controlled type 2 diabetes mellitus with insulin therapy (Chronic) Vascular dementia with behavioral disturbance (Chronic) Morbid obesity (Chronic) Assessment: stage IV pressure ulcer to sacral area. dementia. bedbound Plan: Carly's wound/ulcer was evaluated and debrided today. A CT scan was negative for osteomyelitis. Will continue her dressing to Aquacel Extra to the wound bed at this time and dress with gauze and ABD for drainage absorption. Orders placed to change positions frequently and at least every 2 hours to offload the area. She is already taking a protein supplement as she has poor PO intake due to not having any teeth. F/U in 2 weeks for re-evaluation.
[2018-04-05 13:50] VITALS: BP 121/79; PULSE 97; RESP 16; TEMP 35.8
--- NOTE | 2018-04-05 18:34 | PCM.WC.PN ---
(1) Stage IV pressure ulcer of sacral region Status: Chronic Current Visit: Yes Code(s): L89.154 - Pressure ulcer of sacral region, stage 4 (2) Controlled type 2 diabetes mellitus with insulin therapy Status: Chronic Current Visit: Yes Code(s): E11.9 - Type 2 diabetes mellitus without complications; Z79.4 - manager long term care (current) use of insulin (3) Vascular dementia with behavioral disturbance Status: Chronic Current Visit: Yes Code(s): F01.51 - Vascular dementia with behavioral disturbance (4) Morbid obesity Status: Chronic Current Visit: Yes Code(s): E66.01 - Morbid (severe) obesity due to excess calories Type of Wound Date of Service: 04/05/18 Chief Complaint: nonhealing wound of sacral area History of Wound: Carly is a 77 yo resident of [facility] that presents with a pressure ulcer of her sacral/coccyx area that has been present for several months. She is a poor historian but is accompanied by her daughter who first noticed the wound. It has been being treated with Santyl and optifoam. Her daughter reports that the wound originally started out as a skin tear but progressed to a thick unstageable wound in the course of a week. The patient is mainly bed bound and has a low air loss mattress and a Roho cushion for her wheelchair. Her daughter, Nereyda, has been there and observed that her mother has not been repositioned for over 5 hours at times. She is a full code but would not want to be on life support per her daughter. The area is painful and there is a large amount of drainage. Carly has a urinary catheter but it leaks frequently. Progress of Wound: Carly's wound is much improved from last visit. CT scan was negative for osteomyelitis. Wound culture was repeated and Pseudomonas was present but other bacteria was not present. She was started on ciprofloxacin based on sensitivities. - Physical Exam Vital Signs Temp Pulse Resp BP 96.4 F L 97 16 121/79 H 04/05/18 13:50 04/05/18 13:50 04/05/18 13:50 04/05/18 13:50 General: Alert, Cooperative, No apparent distress HEENT: Atraumatic, Normocephalic Cardiovascular: Regular rate, Regular Rhythm Skin: Ulcer/ Wound Wound Measurements and Assessment WC - Nurse 1 - General Ulcer Measurement Start: 03/22/18 10:42 Freq: Status: Active Protocol: Activity Type Activity Date Activity User E-Sign Co-Sign Detail Recorded Client Recorded Date Recorded By Document 04/05/18 13:50 DL [id number] 04/05/18 14:00 DL 04/05/18 13:50 Wound Center Nurse 1 [Ulcer Assessment] #1 STAGE IV SACRAL PRESSURE ULCER -Current Size (cm) - Length 1.1 -Current Size (cm) - Width 1 -Current Size (cm) - Depth 1.5 -Total Square Cm 1.1 -Photo Taken No -Exudate Amt Small (1-33%) -Exudate Type Serosanguineous -Wound Margin Thickened -Granulation Amt Large (67-100%) -Granulation Quality Red -Necrosis Amt Small (1-33%) -Necrotic Tissue Type Adherent Slough -Structure Exposed N/A -Texture (Francia-wound Skin Appearance) Scarring -Moisture (Francia-wound Skin Appearance No Abnormality ) -Color (Francia-wound Skin Appearance) No Abnormality -Temperature (Francia-wound Skin No Abnormality Appearance) (Pt Warm) -Ulcer Cleansing Wound Cleanser -Foul Odor after Cleansing No -Anesthetic Used 4% Lidocaine Solution WC - Nurse 2 - General Ulcer CM Notes Start: 03/22/18 10:42 Freq: Status: Active Protocol: Activity Type Activity Date Activity User E-Sign Co-Sign Detail Recorded Client Recorded Date Recorded By Document 04/05/18 14:24 [id number] 04/05/18 14:25 04/05/18 14:24 Wound Center Nurse 2 [Procedure/Treatment] -Time 14:24 -Correct Patient Yes -Correct Side, Site, Position Yes -Correct Procedure Yes -Procedure Performed Yes -Type of Procedure Debridement -Clinical Debridement Subcutaneous -Post Debridement Size (cm) - Length 1.7 -Post Debridement Size (cm) - Width 1.3 -Post Debridement Size (cm) - Depth 1.3 -Total Square Cm 2.21 -Wound/Ulcer Outcome Not Healed -Ulcer Cleansing Rinsed/ Irrigated with Saline -Foul Odor after Cleansing No -Bioengineered Tissue No -Topical Lidocaine (%) 4 -Bleeding Controlled with Pressure -Treatment Response Procedure Tolerated Well [See Physician Procedure note for Specifics] Pain Scale: 0-10 Numeric [Pain] -Is Patient Pain Free? Yes Psych/Mental Status: Normal Affect, Appropriate Debridement Note Post-Debridement Measurements/Treatment WC - Nurse 2 - General Ulcer CM Notes Start: 03/22/18 10:42 Freq: Status: Active Protocol: Activity Type Activity Date Activity User E-Sign Co-Sign Detail Recorded Client Recorded Date Recorded By Document 03/22/18 16:58 TM [id number] 03/22/18 17:00 TM Document 04/05/18 14:24 [id number] 04/05/18 14:25 TM 03/22/18 04/05/18 16:58 14:24 Wound Center Nurse 2 #1 STAGE IV SACRAL PRESSURE ULCER -Time 16:58 14:24 -Correct Patient Yes Yes -Correct Side, Site, Position Yes Yes -Correct Procedure Yes Yes -Procedure Performed Yes Yes -Type of Procedure Debridement Debridement -Clinical Debridement Subcutaneous Subcutaneous -Post Debridement Size (cm) - Length 2.2 1.7 -Post Debridement Size (cm) - Width 1.8 1.3 -Post Debridement Size (cm) - Depth 1.5 1.3 -Total Square Cm 3.96 2.21 -Wound/Ulcer Outcome Not Healed Not Healed -Ulcer Cleansing Rinsed/ Rinsed/ Irrigated with Irrigated with Saline Saline -Foul Odor after Cleansing No No -Bioengineered Tissue No No -Topical Lidocaine (%) 5 4 -Bleeding Controlled with Pressure Pressure -Treatment Response Procedure Procedure Tolerated Well Tolerated Well Pain Scale: 0-10 Numeric Is Patient Pain Free? Yes Yes Wound debrided: Stage IV sacral pressure ulcer Laterality: Not Applicable Wound Grade/Stage: stage IV Type of Debridement: Excisional debridement Anesthesia Used: 4% Lidocaine Solution Depth: Down to and including healthy tissue, in the subcutaneous layer Percentage of wound debrided: 100 Instrument Used: 5mm curette Tissue Removed: yellow slough, devitalized tissue Severity: Fat Layer Exposed Amount of bleeding with debridement: Mild Bleeding Controlled with: Compression and gauze Patient tolerated procedure well Assessment/Plan Active Problems Stage IV pressure ulcer of sacral region (Chronic) Controlled type 2 diabetes mellitus with insulin therapy (Chronic) Vascular dementia with behavioral disturbance (Chronic) Morbid obesity (Chronic) Assessment: stage IV pressure ulcer to sacral area. dementia. bedbound Plan: Jamal wound/ulcer was evaluated and debrided today. Continue antibiotic treatment of ciprofloxacin for pseudomonas. Can d/c ESBL precautions as her wound culture recently did not show this being present. CT scan was negative for osteomyelitis. Will continue her dressing with Aquacel Extra to the wound bed at this time and dress with gauze and ABD for drainage absorption. Orders placed to change positions frequently and at least every 2 hours to offload the area. She is already taking a protein supplement as she has poor PO intake due to not having any teeth. F/U in 2 weeks for re-evaluation.
--- NOTE | 2018-04-05 18:40 | PN.PCM_ITS ---
(1) Stage IV pressure ulcer of sacral region Status: Chronic Current Visit: Yes Code(s): L89.154 - Pressure ulcer of sacral region, stage 4 (2) Controlled type 2 diabetes mellitus with insulin therapy Status: Chronic Current Visit: Yes Code(s): E11.9 - Type 2 diabetes mellitus without complications; Z79.4 - long term (current) use of insulin (3) Vascular dementia with behavioral disturbance Status: Chronic Current Visit: Yes Code(s): F01.51 - Vascular dementia with behavioral disturbance (4) Morbid obesity Status: Chronic Current Visit: Yes Code(s): E66.01 - Morbid (severe) obesity due to excess calories Type of Wound Date of Service: 04/05/18 Chief Complaint: nonhealing wound of sacral area History of Wound: Carly is a 77 yo resident of [facility] that presents with a pressure ulcer of her sacral/coccyx area that has been present for several months. She is a poor historian but is accompanied by her daughter who first noticed the wound. It has been being treated with Santyl and optifoam. Her daughter reports that the wound originally started out as a skin tear but progressed to a thick unstageable wound in the course of a week. The patient is mainly bed bound and has a low air loss mattress and a Roho cushion for her wheelchair. Her daughter, Nereyda, has been there and observed that her mother has not been repositioned for over 5 hours at times. She is a full code but would not want to be on life support per her daughter. The area is painful and there is a large amount of drainage. Carly has a urinary catheter but it leaks frequently. Progress of Wound: Carly's wound is much improved from last visit. CT scan was negative for osteomyelitis. Wound culture was repeated and Pseudomonas was present but other bacteria was not present. She was started on ciprofloxacin based on sensitivities. - Physical Exam Vital Signs Temp Pulse Resp BP 96.4 F L 97 16 121/79 H 04/05/18 13:50 04/05/18 13:50 04/05/18 13:50 04/05/18 13:50 General: Alert, Cooperative, No apparent distress HEENT: Atraumatic, Normocephalic Cardiovascular: Regular rate, Regular Rhythm Skin: Ulcer/ Wound Wound Measurements and Assessment WC - Nurse 1 - General Ulcer Measurement Start: 03/22/18 10:42 Freq: Status: Active Protocol: Activity Type Activity Date Activity User E-Sign Co-Sign Detail Recorded Client Recorded Date Recorded By Document 04/05/18 13:50 DL [id number] 04/05/18 14:00 DL 04/05/18 13:50 Wound Center Nurse 1 [Ulcer Assessment] #1 STAGE IV SACRAL PRESSURE ULCER -Current Size (cm) - Length 1.1 -Current Size (cm) - Width 1 -Current Size (cm) - Depth 1.5 -Total Square Cm 1.1 -Photo Taken No -Exudate Amt Small (1-33%) -Exudate Type Serosanguineous -Wound Margin Thickened -Granulation Amt Large (67-100%) -Granulation Quality Red -Necrosis Amt Small (1-33%) -Necrotic Tissue Type Adherent Slough -Structure Exposed N/A -Texture (Francia-wound Skin Appearance) Scarring -Moisture (Francia-wound Skin Appearance No Abnormality ) -Color (Francia-wound Skin Appearance) No Abnormality -Temperature (Francia-wound Skin No Abnormality Appearance) (Pt Warm) -Ulcer Cleansing Wound Cleanser -Foul Odor after Cleansing No -Anesthetic Used 4% Lidocaine Solution WC - Nurse 2 - General Ulcer CM Notes Start: 03/22/18 10:42 Freq: Status: Active Protocol: Activity Type Activity Date Activity User E-Sign Co-Sign Detail Recorded Client Recorded Date Recorded By Document 04/05/18 14:24 [id number] 04/05/18 14:25 04/05/18 14:24 Wound Center Nurse 2 [Procedure/Treatment] -Time 14:24 -Correct Patient Yes -Correct Side, Site, Position Yes -Correct Procedure Yes -Procedure Performed Yes -Type of Procedure Debridement -Clinical Debridement Subcutaneous -Post Debridement Size (cm) - Length 1.7 -Post Debridement Size (cm) - Width 1.3 -Post Debridement Size (cm) - Depth 1.3 -Total Square Cm 2.21 -Wound/Ulcer Outcome Not Healed -Ulcer Cleansing Rinsed/ Irrigated with Saline -Foul Odor after Cleansing No -Bioengineered Tissue No -Topical Lidocaine (%) 4 -Bleeding Controlled with Pressure -Treatment Response Procedure Tolerated Well [See Physician Procedure note for Specifics] Pain Scale: 0-10 Numeric [Pain] -Is Patient Pain Free? Yes Psych/Mental Status: Normal Affect, Appropriate Debridement Note Post-Debridement Measurements/Treatment WC - Nurse 2 - General Ulcer CM Notes Start: 03/22/18 10:42 Freq: Status: Active Protocol: Activity Type Activity Date Activity User E-Sign Co-Sign Detail Recorded Client Recorded Date Recorded By Document 03/22/18 16:58 TM [id number] 03/22/18 17:00 TM Document 04/05/18 14:24 [id number] 04/05/18 14:25 TM 03/22/18 04/05/18 16:58 14:24 Wound Center Nurse 2 #1 STAGE IV SACRAL PRESSURE ULCER -Time 16:58 14:24 -Correct Patient Yes Yes -Correct Side, Site, Position Yes Yes -Correct Procedure Yes Yes -Procedure Performed Yes Yes -Type of Procedure Debridement Debridement -Clinical Debridement Subcutaneous Subcutaneous -Post Debridement Size (cm) - Length 2.2 1.7 -Post Debridement Size (cm) - Width 1.8 1.3 -Post Debridement Size (cm) - Depth 1.5 1.3 -Total Square Cm 3.96 2.21 -Wound/Ulcer Outcome Not Healed Not Healed -Ulcer Cleansing Rinsed/ Rinsed/ Irrigated with Irrigated with Saline Saline -Foul Odor after Cleansing No No -Bioengineered Tissue No No -Topical Lidocaine (%) 5 4 -Bleeding Controlled with Pressure Pressure -Treatment Response Procedure Procedure Tolerated Well Tolerated Well Pain Scale: 0-10 Numeric Is Patient Pain Free? Yes Yes Wound debrided: Stage IV sacral pressure ulcer Laterality: Not Applicable Wound Grade/Stage: stage IV Type of Debridement: Excisional debridement Anesthesia Used: 4% Lidocaine Solution Depth: Down to and including healthy tissue, in the subcutaneous layer Percentage of wound debrided: 100 Instrument Used: 5mm curette Tissue Removed: yellow slough, devitalized tissue Severity: Fat Layer Exposed Amount of bleeding with debridement: Mild Bleeding Controlled with: Compression and gauze Patient tolerated procedure well Assessment/Plan Active Problems Stage IV pressure ulcer of sacral region (Chronic) Controlled type 2 diabetes mellitus with insulin therapy (Chronic) Vascular dementia with behavioral disturbance (Chronic) Morbid obesity (Chronic) Assessment: stage IV pressure ulcer to sacral area. dementia. bedbound Plan: Jamal wound/ulcer was evaluated and debrided today. Continue antibiotic treatment of ciprofloxacin for pseudomonas. Can d/c ESBL precautions as her wound culture recently did not show this being present. CT scan was negative for osteomyelitis. Will continue her dressing with Aquacel Extra to the wound bed at this time and dress with gauze and ABD for drainage absorption. Orders placed to change positions frequently and at least every 2 hours to offload the area. She is already taking a protein supplement as she has poor PO intake due to not having any teeth. F/U in 2 weeks for re- evaluation.
== END 2018-04-09 23:59 ==
LOC: WC 12:30
PROVIDERS: Family Provider Internal Medicine; PCP Internal Medicine; Visit Provider Family Medicine
DX: E11.622 Type 2 diabetes mellitus with other skin ulcer (principal); L89.154 Pressure ulcer of sacral region, stage 4; F01.51 Vascular dementia, unspecified severity, with behavioral disturbance; E66.01 Morbid (severe) obesity due to excess calories; Z71.3 Dietary counseling and surveillance; Z74.01 Bed confinement status
CPT/HCPCS: 11042

== ENCOUNTER 2018-05-03 12:30 | Outpatient (RCR) | payer MEDICARE, MEDICAID, SELFPAY ==
[2018-04-10 01:08] VITALS: BP 121/79; PULSE 97; RESP 16; TEMP 35.8
[2018-04-19 12:36] VITALS: BP 131/63; PULSE 70; RESP 18; TEMP 36.3
--- NOTE | 2018-04-19 17:17 | PCM.WC.PN ---
(1) Stage IV pressure ulcer of sacral region Status: Chronic Current Visit: Yes Code(s): L89.154 - Pressure ulcer of sacral region, stage 4 (2) Controlled type 2 diabetes mellitus with insulin therapy Status: Chronic Current Visit: Yes Code(s): E11.9 - Type 2 diabetes mellitus without complications; Z79.4 - long term care social worker (current) use of insulin (3) Vascular dementia with behavioral disturbance Status: Chronic Current Visit: Yes Code(s): F01.51 - Vascular dementia with behavioral disturbance (4) Morbid obesity Status: Chronic Current Visit: Yes Code(s): E66.01 - Morbid (severe) obesity due to excess calories Type of Wound Date of Service: 04/19/18 Chief Complaint: nonhealing wound of sacral area History of Wound: Carly is a 77 yo resident of [facility] that presents with a pressure ulcer of her sacral/coccyx area that has been present for several months. She is a poor historian but is accompanied by her daughter who first noticed the wound. It has been being treated with Santyl and optifoam. Her daughter reports that the wound originally started out as a skin tear but progressed to a thick unstageable wound in the course of a week. The patient is mainly bed bound and has a low air loss mattress and a Roho cushion for her wheelchair. Her daughter, Nereyda, has been there and observed that her mother has not been repositioned for over 5 hours at times. She is a full code but would not want to be on life support per her daughter. The area is painful and there is a large amount of drainage. Carly has a urinary catheter but it leaks frequently. Progress of Wound: Carly's wound is much improved from last visit. CT scan was negative for osteomyelitis. She has completed antibiotics for pseudomonas. - Physical Exam Vital Signs Temp Pulse Resp BP 97.3 F L 70 18 131/63 H 04/19/18 12:36 04/19/18 12:36 04/19/18 12:36 04/19/18 12:36 General: Alert, Oriented x3, Cooperative, No apparent distress HEENT: Atraumatic, Normocephalic Oral: Moist Mucosa Abdomen: Obese Skin: Ulcer/ Wound Wound Measurements and Assessment WC - Nurse 1 - General Ulcer Measurement Start: 08/10/18 12:36 Freq: Status: Active Protocol: Activity Type Activity Date Activity User E-Sign Co-Sign Detail Recorded Client Recorded Date Recorded By Document 04/19/18 12:36 [id number] 04/19/18 12:38 04/19/18 12:36 Wound Center Nurse 1 [Ulcer Assessment] #1 STAGE IV SACRAL PRESSURE ULCER -Combined with other wound No -Current Size (cm) - Length 0.8 -Current Size (cm) - Width 0.6 -Current Size (cm) - Depth 0.2 -Total Square Cm 0.48 -Date of Last Picture (Recall this 04/19/18 field) -Photo Taken Yes -Epithelialization Small 1-33% -Tunneling No -Undermining/Tunneling No -Circular Undermining No -Exudate Amt Medium (34-66%) -Exudate Type Serosanguineous -Wound Margin Distinct, Outline Attached -Granulation Amt Medium (34-66%) -Granulation Quality Pale [place] -Slough/Fibrin Yes -Necrosis Amt None Present (0 %) -Necrotic Tissue Type Adherent Slough -Structure Exposed None/Limited to Skin Breakdown -Texture (Francia-wound Skin Appearance) No Abnormality Assessed -Color (Francia-wound Skin Appearance) Assessed Ecchymosis -Temperature (Francia-wound Skin No Abnormality Appearance) (Pt Warm) -Tenderness on Palpation (Francia-wound No Skin Appearance) -Ulcer Cleansing Rinsed/ Irrigated with Saline -Foul Odor after Cleansing No -Anesthetic Used 4% Lidocaine Solution [Edema Assessment] -Lower Limb Edema Present NA WC - Nurse 2 - General Ulcer CM Notes Start: 04/19/18 12:36 Freq: Status: Active Protocol: Activity Type Activity Date Activity User E-Sign Co-Sign Detail Recorded Client Recorded Date Recorded By Document 04/19/18 13:32 [id number] 04/19/18 13:33 04/19/18 13:32 Wound Center Nurse 2 [Procedure/Treatment] #1 STAGE IV SACRAL PRESSURE ULCER -Time 13:32 -Correct Patient Yes -Correct Side, Site, Position Yes -Correct Procedure Yes -Procedure Performed Yes -Type of Procedure Debridement -Clinical Debridement Subcutaneous -Post Debridement Size (cm) - Length 0.9 -Post Debridement Size (cm) - Width 0.8 -Post Debridement Size (cm) - Depth 0.6 -Total Square Cm 0.72 -Wound/Ulcer Outcome Not Healed -Ulcer Cleansing Rinsed/ Irrigated with Saline -Foul Odor after Cleansing No -Bioengineered Tissue No -Topical Lidocaine (%) 4 -Bleeding Controlled with Pressure -Treatment Response Procedure Tolerated Well [See Physician Procedure note for Specifics] Pain Scale: 0-10 Numeric [Pain] -Is Patient Pain Free? Yes Psych/Mental Status: Normal Affect, Appropriate Debridement Note Post-Debridement Measurements/Treatment WC - Nurse 2 - General Ulcer CM Notes Start: 04/19/18 12:36 Freq: Status: Active Protocol: Activity Type Activity Date Activity User E-Sign Co-Sign Detail Recorded Client Recorded Date Recorded By Document 04/19/18 13:32 TM [id number] 04/19/18 13:33 TM 04/19/18 13:32 Wound Center Nurse 2 #1 STAGE IV SACRAL PRESSURE ULCER -Time 13:32 -Correct Patient Yes -Correct Side, Site, Position Yes -Correct Procedure Yes -Procedure Performed Yes -Type of Procedure Debridement -Clinical Debridement Subcutaneous -Post Debridement Size (cm) - Length 0.9 -Post Debridement Size (cm) - Width 0.8 -Post Debridement Size (cm) - Depth 0.6 -Total Square Cm 0.72 -Wound/Ulcer Outcome Not Healed -Ulcer Cleansing Rinsed/ Irrigated with Saline -Foul Odor after Cleansing No -Bioengineered Tissue No -Topical Lidocaine (%) 4 -Bleeding Controlled with Pressure -Treatment Response Procedure Tolerated Well Pain Scale: 0-10 Numeric Is Patient Pain Free? Yes Wound debrided: stage IV sacral pressure ulcer Laterality: Not Applicable Type of Debridement: Excisional debridement Anesthesia Used: 4% Lidocaine Solution Depth: Down to and including healthy tissue, in the subcutaneous layer Percentage of wound debrided: 100 Instrument Used: 5mm curette Tissue Removed: yellow slough, devitalized tissue Severity: Fat Layer Exposed Amount of bleeding with debridement: Mild Bleeding Controlled with: Compression and gauze Patient tolerated procedure well Assessment/Plan Active Problems Stage IV pressure ulcer of sacral region (Chronic) Controlled type 2 diabetes mellitus with insulin therapy (Chronic) Vascular dementia with behavioral disturbance (Chronic) Morbid obesity (Chronic) Assessment: stage IV pressure ulcer to sacral area. dementia. bedbound Plan: Jamal wound/ulcer was evaluated and debrided today. Will continue her dressing with Aquacel Extra to the wound bed at this time and dress with gauze and ABD for drainage absorption. Orders placed to change positions frequently and at least every 2 hours to offload the area. She is already taking a protein supplement as she has poor PO intake due to not having any teeth. F/U in 2 weeks for re-evaluation.
--- NOTE | 2018-04-19 17:21 | PN.PCM_ITS ---
(1) Stage IV pressure ulcer of sacral region Status: Chronic Current Visit: Yes Code(s): L89.154 - Pressure ulcer of sacral region, stage 4 (2) Controlled type 2 diabetes mellitus with insulin therapy Status: Chronic Current Visit: Yes Code(s): E11.9 - Type 2 diabetes mellitus without complications; Z79.4 - long term care pharmacist (current) use of insulin (3) Vascular dementia with behavioral disturbance Status: Chronic Current Visit: Yes Code(s): F01.51 - Vascular dementia with behavioral disturbance (4) Morbid obesity Status: Chronic Current Visit: Yes Code(s): E66.01 - Morbid (severe) obesity due to excess calories Type of Wound Date of Service: 04/19/18 Chief Complaint: nonhealing wound of sacral area History of Wound: Carly is a 77 yo resident of [facility] that presents with a pressure ulcer of her sacral/coccyx area that has been present for several months. She is a poor historian but is accompanied by her daughter who first noticed the wound. It has been being treated with Santyl and optifoam. Her daughter reports that the wound originally started out as a skin tear but progressed to a thick unstageable wound in the course of a week. The patient is mainly bed bound and has a low air loss mattress and a Roho cushion for her wheelchair. Her daughter, Nereyda, has been there and observed that her mother has not been repositioned for over 5 hours at times. She is a full code but would not want to be on life support per her daughter. The area is painful and there is a large amount of drainage. Carly has a urinary catheter but it leaks frequently. Progress of Wound: Carly's wound is much improved from last visit. CT scan was negative for osteomyelitis. She has completed antibiotics for pseudomonas. - Physical Exam Vital Signs Temp Pulse Resp BP 97.3 F L 70 18 131/63 H 04/19/18 12:36 04/19/18 12:36 04/19/18 12:36 04/19/18 12:36 General: Alert, Oriented x3, Cooperative, No apparent distress HEENT: Atraumatic, Normocephalic Oral: Moist Mucosa Abdomen: Obese Skin: Ulcer/ Wound Wound Measurements and Assessment WC - Nurse 1 - General Ulcer Measurement Start: 08/10/18 12:36 Freq: Status: Active Protocol: Activity Type Activity Date Activity User E-Sign Co-Sign Detail Recorded Client Recorded Date Recorded By Document 04/19/18 12:36 [id number] 04/19/18 12:38 04/19/18 12:36 Wound Center Nurse 1 [Ulcer Assessment] #1 STAGE IV SACRAL PRESSURE ULCER -Combined with other wound No -Current Size (cm) - Length 0.8 -Current Size (cm) - Width 0.6 -Current Size (cm) - Depth 0.2 -Total Square Cm 0.48 -Date of Last Picture (Recall this 04/19/18 field) -Photo Taken Yes -Epithelialization Small 1-33% -Tunneling No -Undermining/Tunneling No -Circular Undermining No -Exudate Amt Medium (34-66%) -Exudate Type Serosanguineous -Wound Margin Distinct, Outline Attached -Granulation Amt Medium (34-66%) -Granulation Quality [place] -Slough/Fibrin Yes -Necrosis Amt None Present (0 %) -Necrotic Tissue Type Adherent Slough -Structure Exposed None/Limited to Skin Breakdown -Texture (Francia-wound Skin Appearance) No Abnormality Assessed -Color (Francia-wound Skin Appearance) Assessed Ecchymosis -Temperature (Francia-wound Skin No Abnormality Appearance) (Pt Warm) -Tenderness on Palpation (Francia-wound No Skin Appearance) -Ulcer Cleansing Rinsed/ Irrigated with Saline -Foul Odor after Cleansing No -Anesthetic Used 4% Lidocaine Solution [Edema Assessment] -Lower Limb Edema Present NA WC - Nurse 2 - General Ulcer CM Notes Start: 04/19/18 12:36 Freq: Status: Active Protocol: Activity Type Activity Date Activity User E-Sign Co-Sign Detail Recorded Client Recorded Date Recorded By Document 04/19/18 13:32 [id number] 04/19/18 13:33 04/19/18 13:32 Wound Center Nurse 2 [Procedure/Treatment] #1 STAGE IV SACRAL PRESSURE ULCER -Time 13:32 -Correct Patient Yes -Correct Side, Site, Position Yes -Correct Procedure Yes -Procedure Performed Yes -Type of Procedure Debridement -Clinical Debridement Subcutaneous -Post Debridement Size (cm) - Length 0.9 -Post Debridement Size (cm) - Width 0.8 -Post Debridement Size (cm) - Depth 0.6 -Total Square Cm 0.72 -Wound/Ulcer Outcome Not Healed -Ulcer Cleansing Rinsed/ Irrigated with Saline -Foul Odor after Cleansing No -Bioengineered Tissue No -Topical Lidocaine (%) 4 -Bleeding Controlled with Pressure -Treatment Response Procedure Tolerated Well [See Physician Procedure note for Specifics] Pain Scale: 0-10 Numeric [Pain] -Is Patient Pain Free? Yes Psych/Mental Status: Normal Affect, Appropriate Debridement Note Post-Debridement Measurements/Treatment WC - Nurse 2 - General Ulcer CM Notes Start: 04/19/18 12:36 Freq: Status: Active Protocol: Activity Type Activity Date Activity User E-Sign Co-Sign Detail Recorded Client Recorded Date Recorded By Document 04/19/18 13:32 TM [id number] 04/19/18 13:33 TM 04/19/18 13:32 Wound Center Nurse 2 #1 STAGE IV SACRAL PRESSURE ULCER -Time 13:32 -Correct Patient Yes -Correct Side, Site, Position Yes -Correct Procedure Yes -Procedure Performed Yes -Type of Procedure Debridement -Clinical Debridement Subcutaneous -Post Debridement Size (cm) - Length 0.9 -Post Debridement Size (cm) - Width 0.8 -Post Debridement Size (cm) - Depth 0.6 -Total Square Cm 0.72 -Wound/Ulcer Outcome Not Healed -Ulcer Cleansing Rinsed/ Irrigated with Saline -Foul Odor after Cleansing No -Bioengineered Tissue No -Topical Lidocaine (%) 4 -Bleeding Controlled with Pressure -Treatment Response Procedure Tolerated Well Pain Scale: 0-10 Numeric Is Patient Pain Free? Yes Wound debrided: stage IV sacral pressure ulcer Laterality: Not Applicable Type of Debridement: Excisional debridement Anesthesia Used: 4% Lidocaine Solution Depth: Down to and including healthy tissue, in the subcutaneous layer Percentage of wound debrided: 100 Instrument Used: 5mm curette Tissue Removed: yellow slough, devitalized tissue Severity: Fat Layer Exposed Amount of bleeding with debridement: Mild Bleeding Controlled with: Compression and gauze Patient tolerated procedure well Assessment/Plan Active Problems Stage IV pressure ulcer of sacral region (Chronic) Controlled type 2 diabetes mellitus with insulin therapy (Chronic) Vascular dementia with behavioral disturbance (Chronic) Morbid obesity (Chronic) Assessment: stage IV pressure ulcer to sacral area. dementia. bedbound Plan: Jamal wound/ulcer was evaluated and debrided today. Will continue her dressing with Aquacel Extra to the wound bed at this time and dress with gauze and ABD for drainage absorption. Orders placed to change positions frequently and at least every 2 hours to offload the area. She is already taking a protein supplement as she has poor PO intake due to not having any teeth. F/U in 2 weeks for re-evaluation.
[2018-05-03 12:29] VITALS: BP 124/57; PULSE 79; RESP 16; TEMP 35.5
--- NOTE | 2018-05-03 21:19 | PCM.WC.PN ---
(1) Stage IV pressure ulcer of sacral region Status: Chronic Current Visit: Yes Code(s): L89.154 - Pressure ulcer of sacral region, stage 4 (2) Controlled type 2 diabetes mellitus with insulin therapy Status: Chronic Current Visit: Yes Code(s): E11.9 - Type 2 diabetes mellitus without complications; Z79.4 - terminal operations supervisor (current) use of insulin (3) Vascular dementia with behavioral disturbance Status: Chronic Current Visit: Yes Code(s): F01.51 - Vascular dementia with behavioral disturbance (4) Morbid obesity Status: Chronic Current Visit: Yes Code(s): E66.01 - Morbid (severe) obesity due to excess calories Type of Wound Date of Service: 05/03/18 Chief Complaint: nonhealing wound of sacral area History of Wound: Carly is a 77 yo resident of [facility] that presents with a pressure ulcer of her sacral/coccyx area that has been present for several months. She is a poor historian but is accompanied by her daughter who first noticed the wound. It has been being treated with Santyl and optifoam. Her daughter reports that the wound originally started out as a skin tear but progressed to a thick unstageable wound in the course of a week. The patient is mainly bed bound and has a low air loss mattress and a Roho cushion for her wheelchair. Her daughter, Nereyda, has been there and observed that her mother has not been repositioned for over 5 hours at times. She is a full code but would not want to be on life support per her daughter. The area is painful and there is a large amount of drainage. Carly has a urinary catheter but it leaks frequently. Progress of Wound: Carly's wound is much improved from last visit. CT scan was negative for osteomyelitis. She continues to do well. - Physical Exam Vital Signs Temp Pulse Resp BP 95.9 F L 79 16 124/57 H 05/03/18 12:29 05/03/18 12:29 05/03/18 12:29 05/03/18 12:29 General: Alert, Oriented x3, Cooperative, No apparent distress HEENT: Atraumatic, Normocephalic Oral: Moist Mucosa Abdomen: Obese Skin: Ulcer/ Wound Wound Measurements and Assessment WC - Nurse 1 - General Ulcer Measurement Start: 04/19/18 12:36 Freq: Status: Active Protocol: Activity Type Activity Date Activity User E-Sign Co-Sign Detail Recorded Client Recorded Date Recorded By Document 05/03/18 12:29 TN [id number] 05/03/18 12:37 TN 05/03/18 12:29 Wound Center Nurse 1 [Ulcer Assessment] #1 STAGE IV SACRAL PRESSURE ULCER -Combined with other wound No -Current Size (cm) - Length 0.5 -Current Size (cm) - Width 0.5 -Current Size (cm) - Depth 0.2 -Total Square Cm 0.25 -Photo Taken No -Epithelialization None Present -Tunneling No -Undermining/Tunneling No -Circular Undermining No -Classification - Thickness Full Thickness without Exposed Support Structure -Change in Wound Grade/Stage No Query Text:If change please identify the Stage/Grade in the comment (ie. S2 G3) -Exudate Type Serous -Wound Margin Flat & Intact -Granulation Amt Small (1-33%) -Granulation Quality [place] -Slough/Fibrin Yes -Necrosis Amt Small (1-33%) -Necrotic Tissue Type Adherent Slough -Structure Exposed None/Limited to Skin Breakdown -Texture (Francia-wound Skin Appearance) Assessed Scarring -Moisture (Francia-wound Skin Appearance Assessed ) Maceration -Color (Francia-wound Skin Appearance) Assessed Erythema -Temperature (Francia-wound Skin No Abnormality Appearance) (Pt Warm) -Tenderness on Palpation (Francia-wound No Skin Appearance) -Ulcer Cleansing Rinsed/ Irrigated with Saline -Foul Odor after Cleansing No -Anesthetic Used 5% Lidocaine Gel [Edema Assessment] -Lower Limb Edema Present No WC - Nurse 2 - General Ulcer CM Notes Start: 04/19/18 12:36 Freq: Status: Active Protocol: Activity Type Activity Date Activity User E-Sign Co-Sign Detail Recorded Client Recorded Date Recorded By Document 05/03/18 12:59 TM [id number] 05/03/18 13:09 TM 05/03/18 12:59 Wound Center Nurse 2 [Procedure/Treatment] #1 STAGE IV SACRAL PRESSURE ULCER -Time 13:02 -Correct Patient Yes -Correct Side, Site, Position Yes -Correct Procedure Yes -Procedure Performed Yes -Type of Procedure Debridement -Clinical Debridement Subcutaneous -Post Debridement Size (cm) - Length 0.5 -Post Debridement Size (cm) - Width 0.5 -Post Debridement Size (cm) - Depth 0.2 -Total Square Cm 0.25 -Wound/Ulcer Outcome Not Healed -Ulcer Cleansing Rinsed/ Irrigated with Saline -Foul Odor after Cleansing No -Bioengineered Tissue No -Topical Lidocaine (%) 5 -Bleeding Controlled with Pressure -Treatment Response Procedure Tolerated Well [See Physician Procedure note for Specifics] Pain Scale: 0-10 Numeric [Pain] -Is Patient Pain Free? Yes Psych/Mental Status: Normal Affect, Appropriate Debridement Note Post-Debridement Measurements/Treatment WC - Nurse 2 - General Ulcer CM Notes Start: 04/19/18 12:36 Freq: Status: Active Protocol: Activity Type Activity Date Activity User E-Sign Co-Sign Detail Recorded Client Recorded Date Recorded By Document 04/19/18 13:32 TM [id number] 04/19/18 13:33 TM Document 05/03/18 12:59 TM [id number] 05/03/18 13:09 TM 04/19/18 05/03/18 13:32 12:59 Wound Center Nurse 2 #1 STAGE IV SACRAL PRESSURE ULCER -Time 13:32 13:02 -Correct Patient Yes Yes -Correct Side, Site, Position Yes Yes -Correct Procedure Yes Yes -Procedure Performed Yes Yes -Type of Procedure Debridement Debridement -Clinical Debridement Subcutaneous Subcutaneous -Post Debridement Size (cm) - Length 0.9 0.5 -Post Debridement Size (cm) - Width 0.8 0.5 -Post Debridement Size (cm) - Depth 0.6 0.2 -Total Square Cm 0.72 0.25 -Wound/Ulcer Outcome Not Healed Not Healed -Ulcer Cleansing Rinsed/ Rinsed/ Irrigated with Irrigated with Saline Saline -Foul Odor after Cleansing No No -Bioengineered Tissue No No -Topical Lidocaine (%) 4 5 -Bleeding Controlled with Pressure Pressure -Treatment Response Procedure Procedure Tolerated Well Tolerated Well Pain Scale: 0-10 Numeric Is Patient Pain Free? Yes Yes Wound debrided: Stage IV sacral pressure ulcer Laterality: Not Applicable Wound Grade/Stage: stage IV Type of Debridement: Excisional debridement Anesthesia Used: 5% Lidocaine Gel Depth: Down to and including healthy tissue, in the subcutaneous layer Percentage of wound debrided: 100 Instrument Used: 5mm curette Tissue Removed: devitalized tissue, slough Severity: Fat Layer Exposed Amount of bleeding with debridement: Mild Bleeding Controlled with: Compression and gauze Patient tolerated procedure well Assessment/Plan Active Problems Stage IV pressure ulcer of sacral region (Chronic) Controlled type 2 diabetes mellitus with insulin therapy (Chronic) Vascular dementia with behavioral disturbance (Chronic) Morbid obesity (Chronic) Assessment: stage IV pressure ulcer to sacral area. dementia. bedbound Plan: Vigneshs wound/ulcer was evaluated and debrided today. Will continue her dressing with Aquacel Extra to the wound bed at this time and dress with gauze and ABD for drainage absorption. Orders placed to change positions frequently and at least every 2 hours to offload the area. She is already taking a protein supplement as she has poor PO intake due to not having any teeth. F/U in 2 weeks for re-evaluation.
== END 2018-05-10 23:59 ==
LOC: WC 12:30
PROVIDERS: Family Provider Internal Medicine; PCP Internal Medicine; Visit Provider Family Medicine
DX: E11.622 Type 2 diabetes mellitus with other skin ulcer (principal); L89.154 Pressure ulcer of sacral region, stage 4; F01.51 Vascular dementia, unspecified severity, with behavioral disturbance; E66.01 Morbid (severe) obesity due to excess calories; Z74.01 Bed confinement status; Z71.3 Dietary counseling and surveillance
CPT/HCPCS: 11042

== ENCOUNTER 2018-05-17 08:48 | Outpatient (RCR) | payer MEDICARE, SELFPAY ==
[2018-05-11 01:13] VITALS: BP 124/57; PULSE 79; RESP 16; TEMP 35.5
[2018-05-17 13:08] VITALS: BP 121/79; PULSE 91; RESP 16; TEMP 35.7
--- NOTE | 2018-05-17 17:31 | PCM.WC.PN ---
(1) Stage IV pressure ulcer of sacral region Status: Chronic Current Visit: Yes Code(s): L89.154 - Pressure ulcer of sacral region, stage 4 (2) Controlled type 2 diabetes mellitus with insulin therapy Status: Chronic Current Visit: Yes Code(s): E11.9 - Type 2 diabetes mellitus without complications; Z79.4 - remote computer terminal operator (current) use of insulin (3) Vascular dementia with behavioral disturbance Status: Chronic Current Visit: Yes Code(s): F01.51 - Vascular dementia with behavioral disturbance (4) Morbid obesity Status: Chronic Current Visit: Yes Code(s): E66.01 - Morbid (severe) obesity due to excess calories Type of Wound Date of Service: 05/17/18 Chief Complaint: nonhealing wound of sacral area History of Wound: Carly is a [address] of [facility] that presents with a pressure ulcer of her sacral/coccyx area that has been present for several months. She is a poor historian but is accompanied by her daughter who first noticed the wound. It has been being treated with Santyl and optifoam. Her daughter reports that the wound originally started out as a skin tear but progressed to a thick unstageable wound in the course of a week. The patient is mainly bed bound and has a low air loss mattress and a Roho cushion for her wheelchair. Her daughter, Nereyda, has been there and observed that her mother has not been repositioned for over 5 hours at times. She is a full code but would not want to be on life support per her daughter. The area is painful and there is a large amount of drainage. Carly has a urinary catheter but it leaks frequently. Progress of Wound: Carly's wound is healed. - Physical Exam Vital Signs Temp Pulse Resp BP 96.2 F L 91 16 121/79 H 05/17/18 13:08 05/17/18 13:08 05/17/18 13:08 05/17/18 13:08 General: Alert, Oriented x3, Cooperative, No apparent distress HEENT: Atraumatic, Normocephalic Oral: Moist Mucosa Abdomen: Obese Skin: Ulcer/ Wound Wound Measurements and Assessment WC - Nurse 1 - General Ulcer Measurement Start: 05/17/18 13:08 Freq: Status: Active Protocol: Activity Type Activity Date Activity User E-Sign Co-Sign Detail Recorded Client Recorded Date Recorded By Document 05/17/18 13:08 [facility] [id number] 05/17/18 13:16 [facility] 05/17/18 13:08 Wound Center Nurse 1 [Ulcer Assessment] #1 STAGE IV SACRAL PRESSURE ULCER -Combined with other wound No -Current Size (cm) - Length 0.1 -Current Size (cm) - Width 0.1 -Current Size (cm) - Depth 0.1 -Total Square Cm 0.01 -Photo Taken No -Epithelialization Large 67-100% -Texture (Francia-wound Skin Appearance) Scarring -Moisture (Francia-wound Skin Appearance Assessed ) -Color (Francia-wound Skin Appearance) No Abnormality -Temperature (Francia-wound Skin No Abnormality Appearance) (Pt Warm) -Tenderness on Palpation (Francia-wound No Skin Appearance) -Ulcer Cleansing Rinsed/ Irrigated with Saline -Foul Odor after Cleansing No -Anesthetic Used 5% Lidocaine Gel WC - Nurse 2 - General Ulcer CM Notes Start: 05/17/18 13:08 Freq: Status: Active Protocol: Activity Type Activity Date Activity User E-Sign Co-Sign Detail Recorded Client Recorded Date Recorded By Document 05/17/18 13:47 [id number] 05/17/18 13:50 05/17/18 13:47 Wound Center Nurse 2 [Procedure/Treatment] -Time 13:48 -Correct Patient Yes -Correct Side, Site, Position Yes -Correct Procedure Yes -Procedure Performed Yes -Post Debridement Size (cm) - Length 0 -Post Debridement Size (cm) - Width 0 -Post Debridement Size (cm) - Depth 0 -Total Square Cm 0 -Wound/Ulcer Outcome Healed- Epithelialized -Ulcer Cleansing Rinsed/ Irrigated with Saline -Foul Odor after Cleansing No -Bioengineered Tissue No -Topical Lidocaine (%) 5 -Bleeding Controlled with NA -Treatment Response Procedure Tolerated Well [See Physician Procedure note for Specifics] Pain Scale: 0-10 Numeric [Pain] -Is Patient Pain Free? Yes Psych/Mental Status: Normal Affect, Appropriate Debridement Note Post-Debridement Measurements/Treatment WC - Nurse 2 - General Ulcer CM Notes Start: 05/17/18 13:08 Freq: Status: Active Protocol: Activity Type Activity Date Activity User E-Sign Co-Sign Detail Recorded Client Recorded Date Recorded By Document 05/17/18 13:47 [id number] 05/17/18 13:50 05/17/18 13:47 Wound Center Nurse 2 #1 STAGE IV SACRAL PRESSURE ULCER -Time 13:48 -Correct Patient Yes -Correct Side, Site, Position Yes -Correct Procedure Yes -Procedure Performed Yes -Post Debridement Size (cm) - Length 0 -Post Debridement Size (cm) - Width 0 -Post Debridement Size (cm) - Depth 0 -Total Square Cm 0 -Wound/Ulcer Outcome Healed- Epithelialized -Ulcer Cleansing Rinsed/ Irrigated with Saline -Foul Odor after Cleansing No -Bioengineered Tissue No -Topical Lidocaine (%) 5 -Bleeding Controlled with NA -Treatment Response Procedure Tolerated Well Pain Scale: 0-10 Numeric Is Patient Pain Free? Yes Wound debrided: Stage IV sacral pressure ulcer Laterality: Not Applicable Wound Grade/Stage: stage IV No debridement was completed today - wound is healed Assessment/Plan Active Problems Stage IV pressure ulcer of sacral region (Chronic) Controlled type 2 diabetes mellitus with insulin therapy (Chronic) Vascular dementia with behavioral disturbance (Chronic) Morbid obesity (Chronic) Assessment: stage IV pressure ulcer to sacral area - healed. dementia. bedbound Plan: Jamal wound/ulcer was evaluated and is healed. Will continue to have her use offloading measures with changing positions frequently and at least every 2 hours to offload the area. She will continue taking a protein supplement as she has poor PO intake due to not having any teeth. F/U as needed.
== END 2018-06-09 23:59 ==
LOC: WC 08:48
PROVIDERS: Family Provider Internal Medicine; PCP Internal Medicine; Visit Provider Family Medicine
DX: Z09 Encounter for follow-up examination after completed treatment for conditions other than malignant neoplasm (principal); E11.9 Type 2 diabetes mellitus without complications; Z79.4 Long term (current) use of insulin; E66.01 Morbid (severe) obesity due to excess calories; Z71.3 Dietary counseling and surveillance; F01.50 Vascular dementia, unspecified severity, without behavioral disturbance, psychotic disturbance, mood disturbance, and anxiety; Z74.01 Bed confinement status
CPT/HCPCS: 99213; G0463